=== PATIENT | male | born 1975 | race African-American/Black ===

== ENCOUNTER 2020-01-12 19:34 | Inpatient (IN) | payer BC ==
[~2020-01-12] VITALS: Ht 182.9 cm; Wt 158.8 kg
[2020-01-12 20:14] VITALS: BP 140/82
--- NOTE | 2020-01-12 20:14 | NUR ---
ER Nurse Note: Pt walked in with c/o RT side flank pain s/p gastric sleeve surgery at 0700. Pt stated he was discharged at 1500. Pt stated he has severe sharp lower abd pain to flank pain; unresolved by norco. Pt stated n/v. Pt denies taking oral fluids and food d/t surgery. Pt has three steri-strips on abd, site clean, dry, intact. ERMD at pt side, will continue to monitor
[2020-01-12] MEDS ORDERED: HYDROmorphone 1mg/ml Carpuject IVP ONE ×2 (20:15→21:15)
--- NOTE | 2020-01-12 20:39 | NUR ---
ER Nurse Note: Pt back from CT; all labs sent and awaiting results. IV established by second RN. Fluids infusing, pt stated pain med did not help and stated 10/10 pain. Pt back on social worker health services. Will continue to montior.
--- NOTE | 2020-01-12 20:59 | Diagnostic Imaging Report ---
INDICATION: Abdominal pain TECHNIQUE: Continuous helical transaxial imaging of the abdomen and pelvis was obtained from the lung bases to the pubic symphysis. No intravenous contrast was administered. Coronal 2-D reformats were also obtained. Automatic Exposure Control was utilized. Total Dose length Product (DLP): [address] Dose Index Volume (CTDIvol): 39 mGy Comparison: none FINDINGS: Lungs: Some groundglass opacification noted at the lung bases. There is motion related artifact present. Hiatal hernia and cardiomegaly are noted.. There are small bubbles of air demonstrated within the ventral abdominal wall and subcutaneous fat. This may be from recent surgery. Please correlate clinically. Liver: Grossly unremarkable. Again there is motion artifact. Gallbladder/biliary system: No gallstones are identified. There is no evidence of intrahepatic or extrahepatic biliary ductal dilatation. Spleen: Unremarkable Pancreas: Unremarkable Kidneys/Bladder: No definite stone or hydronephrosis are identified. The urinary bladder is unremarkable.. Adrenal glands: Poorly evaluated. Bowel: There are surgical clips in the area of the stomach. No obvious evidence for bowel obstruction. The appendix is seen and appears normal in caliber. No inflammation seen. Aorta/IVC: Mild calcification of the iliac arteries noted. Peritoneum: There is no free fluid. Bones: Unremarkable IMPRESSION: No acute findings. Limited evaluation. Osteoarthritis of the left hip. Patchy groundglass opacities at the lung bases nonspecific. Cardiomegaly Hiatal hernia Ventral abdominal wall air. Correlate for recent surgery or injections. [facility] has communicated the preliminary results to the Emergency Department. Their findings are largely concordant with this report. Very limited study due to motion Note: Evaluation of solid organs is limited on non contrast imaging. The CT scanner at [facility] is accredited by the [employer] and the scans are performed using dose optimization techniques as appropriate to a performed exam including Automatic Exposure control.
--- NOTE | 2020-01-12 21:03 | Emergency Room Report ---
History of Present Illness General Chief Complaint: Pain Source: Patient Present Illness HPI 44-year-old male presents with right flank pain after bariatric surgery patient reports that he was lying on his back the entire surgery, and afterwards he has been having right lower back pain, aggravated with movement alleviated throughout severity is moderate, intermittent no fevers no chills no dysuria, endorses some generalized abdominal pain after the bariatric surgery patient presents for evaluation. Allergies: Coded Allergies: No Known Allergies (Unverified , 01/12/20) Patient History Past Medical History: see triage record Reviewed Nursing Documentation: PMH: Agreed; PSxH: Agreed Nursing Documentation-PMH Hx Hypertension: Yes Review of Systems All Other Systems: negative except mentioned in HPI Physical Exam Vital Signs Date Time Temp Pulse Resp B/P (MAP) Pulse Ox O2 Delivery O2 Flow Rate FiO2 01/12/20 19:42 99.0 76 27 140/82 (101) 100 Sp02 EP Interpretation: reviewed, normal General Appearance: alert, moderate distress Head: normocephalic, atraumatic Eyes: bilateral eye PERRL, bilateral eye EOMI ENT: uvula midline, moist mucus membranes Neck: supple, thyroid normal, supple/symm/no masses Respiratory: lungs clear, no respiratory distress, no retraction, no accessory muscle use Cardiovascular #1: normal peripheral pulses, regular rate, rhythm, no edema, no gallop, no murmur Gastrointestinal: non tender, soft, no guarding, no rebound, other - Surgical incisions noted clean dry intact Musculoskeletal: tender - Tenderness to palpation right lower back, no midline tenderness no step-offs Neurologic: alert, oriented x3 Psychiatric: mood/affect normal Skin: no rash, warm/dry Medical Decision Making Diagnostic Impression: Primary Impression: Intractable abdominal pain Additional Impressions: Transaminitis Acute postoperative pain of abdomen ER Course 44-year-old male with right flank pain after the operation most likely secondary to positioning and pressure patient with a large body habitus, no infectious etiologies. Patient requiring multiple amounts of pain medication to control his pain We will admit patient for pain control No acute surgical intervention at this time We will admit patient Reeval 9:37pm patient improving with pain control Patient admitted to Dr. Ott Laboratory Tests Test 01/12/20 20:15 White Blood Count 13.9 K/UL (4.8-10.8) H Red Blood Count 4.71 M/UL (4.70-6.10) Hemoglobin 15.0 G/DL (14.2-18.0) Hematocrit 46.6 % (42.0-52.0) Mean Corpuscular Volume 99 FL (80-99) Mean Corpuscular Hemoglobin 31.9 PG (27.0-31.0) H Mean Corpuscular Hemoglobin Concent 32.2 G/DL (32.0-36.0) Red Cell Distribution Width 13.4 % (11.6-14.8) Platelet Count 295 K/UL (150-450) Mean Platelet Volume 6.4 FL (6.5-10.1) L Neutrophils (%) (Auto) 92.8 % (45.0-75.0) H Lymphocytes (%) (Auto) 3.8 % (20.0-45.0) L Monocytes (%) (Auto) 3.1 % (1.0-10.0) Eosinophils (%) (Auto) 0.0 % (0.0-3.0) Basophils (%) (Auto) 0.4 % (0.0-2.0) Prothrombin Time 10.7 SEC (9.30-11.50) Prothrombin Time INR 1.0 (0.9-1.1) Activated Partial Thromboplast Time 26 SEC (23-33) Sodium Level 142 MMOL/L (136-145) Potassium Level 4.2 MMOL/L (3.5-5.1) Chloride Level 99 MMOL/L (98-107) Carbon Dioxide Level 30 MMOL/L (21-32) Anion Gap 13 mmol/L (5-15) Blood Urea Nitrogen 18 mg/dL (7-18) Creatinine 1.3 MG/DL (0.55-1.30) Estimate Glomerular Filtration Rate > 60 mL/min (>60) Glucose Level 126 MG/DL (74-106) H Calcium Level 9.8 MG/DL (8.5-10.1) Total Bilirubin 0.4 MG/DL (0.2-1.0) Aspartate Amino Transferase (AST) 885 U/L (15-37) H Alanine Aminotransferase (ALT) 304 U/L (12-78) H Alkaline Phosphatase 68 U/L (46-116) Total Protein 8.3 G/DL (6.4-8.2) H Albumin 4.3 G/DL (3.4-5.0) Globulin 4.0 g/dL Albumin/Globulin Ratio 1.1 (1.0-2.7) Lipase 207 U/L (73-393) Rhythm Strip Diag. Results Rhythm Strip Time: 21:37 EP Interpretation: yes Rate: 80 Rhythm: NSR, no PVC's, no ectopy CT/MRI/US Diagnostic Results CT/MRI/US Diagnostic Results : Impression Procedure: CT Abdomen Pelvis WO Contrast CT ABDOMEN + PELVIS Without Contrast: Left infrahilar mild infiltrate or atelectasis. Small hiatal hernia. Surgical clips around nondistended stomach. Emphysema in the anterior abdominal wall fat as well as deep to the rectus muscle but superficial to the peritoneum. Streaky changes in the right and left upper anterior abdominal wall fat is noted. Please clinically correlate if patient has had any trauma or injections. Fatty liver. Normal appendix. Negative for hydronephrosis Negative for obstruction or inflammatory change of the bowel. Severe left, moderate right hip arthroplasty. Old fracture deformity and pin is noted in the left femoral head neck region. S-shaped scoliosis of the thoracolumbar spine. Dictated By: Jennifer Juarez M.D. Electronically Signed By: Signed Date/Time CC: Last Vital Signs Date Time Temp Pulse Resp B/P (MAP) Pulse Ox O2 Delivery O2 Flow Rate FiO2 01/12/20 20:46 98.9 01/12/20 20:14 78 27 140/82 100 Disposition: ADMITTED INPATIENT Condition: Stable Caleb Jaramillo MD Jan 12, 2020 21:03
[2020-01-12 21:04] LABS: ANION GAP 13 mmol/L (5-15); BLOOD UREA NITROGEN 18 mg/dL (7-18); CALCIUM 9.8 MG/DL (8.5-10.1); CARBON DIOXIDE 30 MMOL/L (21-32); CHLORIDE 99 MMOL/L (98-107); CREATININE 1.3 MG/DL (0.55-1.30); HEMATOCRIT 46.6 % (42.0-52.0); MEAN CORPUSCULAR VOLUME 99 FL (80-99); PLATELET COUNT 295 K/UL (150-450); POTASSIUM 4.2 MMOL/L (3.5-5.1); RED BLOOD COUNT 4.71 M/UL (4.70-6.10); RED CELL DISTRIBUTION WIDTH 13.4 % (11.6-14.8); SODIUM 142 MMOL/L (136-145); WHITE BLOOD COUNT 13.9 K/UL (4.8-10.8)
[2020-01-12 21:06] LABS: LYMPHOCYTES % (AUTO) 3.8 % (20.0-45.0); NEUTROPHILS % (AUTO) 92.8 % (45.0-75.0)
[2020-01-12 21:07] LABS: BASOPHILS % (AUTO) 0.4 % (0.0-2.0); MONOCYTES % (AUTO) 3.1 % (1.0-10.0)
[2020-01-12 21:09] LABS: ALANINE AMINOTRANSFERASE 304 U/L (12-78); ALBUMIN 4.3 G/DL (3.4-5.0); ALBUMIN/GLOBULIN RATIO 1.1 (1.0-2.7); ALKALINE PHOSPHATASE 68 U/L (46-116); ASPARTATE AMINO TRANSFERASE 885 U/L (15-37); BILIRUBIN,TOTAL 0.4 MG/DL (0.2-1.0)
[2020-01-12] MEDS ORDERED: Ketorolac 30mg Inj IV ONE (21:15)
[2020-01-12 21:44] VITALS: BP 145/84
--- NOTE | 2020-01-12 21:45 | NUR ---
ER Nurse Note: Pt expressed pain, ERMD aware and pain meds given. Pt asleep, VSS, RA, no signs of distress. No n/v currently. at bedside; all safey measures met; will continue to montior.
--- NOTE | 2020-01-12 22:10 | NUR ---
NURSE NOTES: Receive a report from TERESA Wick from ED.
[2020-01-12] MEDS ORDERED: OMEPRAZOLE40 M1 ORAL (22:18)
[2020-01-12] MEDS ORDERED: ZOFRAN ODT8 MG ORAL (22:18)
[2020-01-12] MEDS ORDERED: NORCO 5-325 TA1 EACH ORAL (22:18)
[2020-01-12] MEDS ORDERED: ATENOLOL100 MG ORAL (22:20)
[2020-01-12] MEDS ORDERED: LISINOPRIL40 MG ORAL (22:20)
[2020-01-12 22:25] LABS: APPEARANCE,URINE SLIGHTLY CLOUDY; BILIRUBIN, URINE NEGATIVE (NEGATIVE); GLUCOSE, URINE (UA) NEGATIVE (NEGATIVE); KETONES,URINE 1+ (NEGATIVE); LEUKOCYTE ESTERASE ,URINE NEGATIVE (NEGATIVE); NITRITE,URINE NEGATIVE (NEGATIVE); PH,URINE 5 (4.5-8.0); PROTEIN,URINE 2+ (NEGATIVE); UROBILINOGEN,URINE NORMAL MG/DL (0.0-1.0)
--- NOTE | 2020-01-12 22:26 | NUR ---
ER Nurse Note: Urine collected and sent to lab. Report given to TERESA Nash for continuity of care. Pt stated his pain is getting better; 5/10 pain after pain medication administered. at bedside. Belongings collected.
[2020-01-12 22:27] LABS: COLOR,URINE YELLOW
[2020-01-12 22:45] VITALS: BP 150/78
--- NOTE | 2020-01-12 22:45 | NUR ---
ER Nurse Note: Pt departed from unit
[2020-01-12 22:55] VITALS: BP 164/94
--- NOTE | 2020-01-12 22:55 | NUR ---
NURSE NOTES: Pt admitted from ED via gurney. Awake and alert. D/T pain on right flank, pt needs to a time to move from gurney to bed. Surgical sites from outpatient @ other facility are clear and intact with steri-strips. Left AC H/L is intact without infiltration. Provide unit orientation. Call light within reach. Bed is locked and lowest. Will continue to monitor.
--- NOTE | 2020-01-12 23:10 | NUR ---
NURSE NOTES: Called Dr. Ott for pt's admission and admission orders. Will continue to follow up.
[2020-01-12] MEDS ORDERED: DiphenhydrAMINE 25mg Tab ORAL PRN (23:30)
[2020-01-12] MEDS ORDERED: Nitroglycerin Subl 0.4mg tab SL PRN (23:30)
[2020-01-12] MEDS ORDERED: Miralax 17gm pkt ORAL PRN (23:30)
--- NOTE | 2020-01-12 23:40 | NUR ---
NURSE NOTES: Receive admission orders from Dr. Varela. Order noted and carried out. Called Dr. Ott and Dr. Interiano for pain medication order and waiting for call-back. Will continue to follow up.
[2020-01-13] VITALS: BP 164/94
--- NOTE | 2020-01-13 | NUR ---
NURSE NOTES: Pt fell asleep. is at bed side. Discuss with about possible pain after surgery earlier he had. Explain the situation to get extra order from . Will continue to follow up.
[2020-01-13] MEDS: D5 1/2NS 1,000 ML IV SCH ×2 (01:08→13:25)
--- NOTE | 2020-01-13 01:18 | NUR ---
NURSE NOTES: Left a message to Dr. Ott and Dr. Varela for further order.
--- NOTE | 2020-01-13 02:00 | NUR ---
NURSE NOTES: Left a message to Dr. Varela by [employer] Outside. Will wait for call back.
--- NOTE | 2020-01-13 02:30 | NUR ---
NURSE NOTES: Contact Dr. Farnsworth for further order by CN. Waiting for call back.
--- NOTE | 2020-01-13 02:45 | NUR ---
NURSE NOTES: Receive a call from Dr. Farnsworth and update the situation. Receive an order of Dilaudid 1mg IVS once. Read back order. Order noted and carried out.
[2020-01-13] MEDS ORDERED: HYDROmorphone 1mg/ml Carpuject IVP SCH (03:00)
[2020-01-13 04:00] VITALS: BP 153/83
--- NOTE | 2020-01-13 04:30 | NUR ---
NURSE NOTES: Pt had pain medication but pain did not relieve. Update the order so far. Left a message to Dr. Varela. Will continue to follow up.
--- NOTE | 2020-01-13 05:00 | NUR ---
NURSE NOTES: Since no gas passing after surgery and no bowel sound noted, encourage to ambulate. Provide FWW to support. Pt got out of the bed. Ambulated in the room but not much d/t right side pain. Will continue to follow up for MD's order.
[2020-01-13 06:01] LABS: HEMATOCRIT 42.3 % (42.0-52.0); HEMOGLOBIN 14.5 G/DL (14.2-18.0); MEAN CORPUSCULAR VOLUME 95 FL (80-99); PLATELET COUNT 269 K/UL (150-450); RED BLOOD COUNT 4.46 M/UL (4.70-6.10); RED CELL DISTRIBUTION WIDTH 12.7 % (11.6-14.8); WHITE BLOOD COUNT 12.3 K/UL (4.8-10.8)
[2020-01-13 06:21] LABS: ALANINE AMINOTRANSFERASE 347 U/L (12-78); ALKALINE PHOSPHATASE 61 U/L (46-116); AMYLASE 50 U/L (25-115); ANION GAP 8 mmol/L (5-15); BILIRUBIN,TOTAL 0.4 MG/DL (0.2-1.0); BLOOD UREA NITROGEN 17 mg/dL (7-18); CALCIUM 9.3 MG/DL (8.5-10.1); CARBON DIOXIDE 32 MMOL/L (21-32); CHLORIDE 101 MMOL/L (98-107); CREATININE 1.1 MG/DL (0.55-1.30); POTASSIUM 3.9 MMOL/L (3.5-5.1); SODIUM 141 MMOL/L (136-145)
--- NOTE | 2020-01-13 06:35 | NUR ---
NURSE NOTES: Notify Dr. Varela to get pain medication. Receive orders and read back. Order noted and carried out. Pt and made aware. Waiting for verifying medication.
[2020-01-13] MEDS: Pantoprazole Inj IVP SCH (06:39)
[2020-01-13] MEDS ORDERED: Ketorolac 30mg Inj IM PRN (06:45)
[2020-01-13] MEDS ORDERED: Ketorolac 30mg Inj IV PRN (07:00)
--- NOTE | 2020-01-13 07:10 | NUR ---
HAND-OFF: Report given to TERESA Addison. Round is done. Pt is asleep.
[2020-01-13 08:00] VITALS: BP 132/78
--- NOTE | 2020-01-13 08:05 | NUR ---
NURSE NOTES: received report from TERESA Ta. patient in bed, A&Ox4, verbally responsive. no respiratory distress noted. pain on ABD. IV on RAC 20 running d51/2NS@75/hr. bed in the lowest position and locked. call light within reach. NPO except ice chips and meds. surgical site dressing on abd intact. clean and dry. no drainage or bleeding noted. bed in the lowest position and locked. call light within reach. will continue to provide plan of care.
[2020-01-13] MEDS: Lisinopril 20mg tab ORAL SCH (08:42)
[2020-01-13] MEDS: Heparin 5000 units/ml inj SUBQ SCH ×2 (08:44→22:03)
[2020-01-13 09:16] LABS: ASPARTATE AMINO TRANSFERASE 1136 U/L (15-37)
[2020-01-13] MEDS ORDERED: Varibar Thin Liquid powder 148gm MC PRN (10:00)
[2020-01-13] MEDS ORDERED: Barium EZ HD MC PRN (10:00)
[2020-01-13] MEDS ORDERED: Barium EZ Gas II granules MC PRN (10:00)
--- NOTE | 2020-01-13 11:48 | NUR ---
NURSE NOTES: Spoke to Virgilio Paredes [employer] regarding patient and new order received. Order read back and carried out.
[2020-01-13 12:00] VITALS: BP 153/76
--- NOTE | 2020-01-13 12:39 | GI Initial Consult Note ---
History of Present Illness General Date patient seen: Jan 13, 2020 Time patient seen: 12:25 Reason for Hospitalization: Pain Referring physician: LAILA CARLOS Reason for Consultation: TRANSAMINITIS Present Illness HPI 44-year-old male presents with right flank pain after bariatric surgery patient reports that he was lying on his back the entire surgery, and afterwards he has been having right lower back pain, aggravated with movement alleviated throughout severity is moderate, intermittent no fevers no chills no dysuria, endorses some generalized abdominal pain after the bariatric surgery patient presents for evaluation. GI consulted for abdominal pain, transaminitis. Pt seen, awake A&Ox4 NAD with no active s/sx of N/V. At the time of evaluation, the patient has right flank pain with minimal relief from pain medication. Patient recently had bariatric surgery, but denies any abdominal pain or bloating. The pain is initial and the patient never had this type of pain before. Patient was pending a UGI series, but unable to be performed due to the patients weight. CT was performed , noted for fatty liver but mainly unremarkable. Laboratory review noted LFT elevation. Home Meds Reported Medications Atenolol* (TENORMIN*) 100 Mg Tablet, 100 MG ORAL DAILY for bp, TAB 01/12/20 Lisinopril* (LISINOPRIL*) 40 Mg Tablet, 40 MG ORAL DAILY for BP, TAB 01/12/20 Omeprazole (OMEPRAZOLE) 40 Mg Capsule.dr, 40 MG ORAL DAILY for gerd, CAP 01/12/20 Hydrocodone Bit/Acetaminophen 5-325* (NORCO 5-325*) 1 Each Tablet, 1 TAB ORAL Q6H PRN for For Pain, #12 TAB 0 Refills 01/12/20 Ondansetron Odt* (ZOFRAN ODT*) 8 Mg Tab.rapdis, 8 MG ORAL Q6H PRN for Nausea & Vomiting, #30 TAB 01/12/20 Med list reviewed/reconciled: Yes Allergies: Coded Allergies: No Known Allergies (Unverified , 01/12/20) Patient History History Provided By: Patient, Medical Record PMH Narrative Past Medical History: see triage record Reviewed Nursing Documentation: PMH: Agreed; PSxH: Agreed Social History: Denies: smoking, alcohol use, drug use, other Review of Systems All Other Systems: negative except mentioned in HPI Physical Exam Vital Signs Date Time Temp Pulse Resp B/P (MAP) Pulse Ox O2 Delivery O2 Flow Rate FiO2 01/12/20 19:42 99.0 76 27 140/82 (101) 100 01/12/20 22:45 Nasal Cannula 1.0 Sp02 EP Interpretation: reviewed, normal Labs Laboratory Tests Test 01/12/20 20:15 01/12/20 22:05 01/13/20 05:15 White Blood Count 13.9 K/UL (4.8-10.8) H 12.3 K/UL (4.8-10.8) H Red Blood Count 4.71 M/UL (4.70-6.10) 4.46 M/UL (4.70-6.10) L Hemoglobin 15.0 G/DL (14.2-18.0) 14.5 G/DL (14.2-18.0) Hematocrit 46.6 % (42.0-52.0) 42.3 % (42.0-52.0) Mean Corpuscular Volume 99 FL (80-99) 95 FL (80-99) Mean Corpuscular Hemoglobin 31.9 PG (27.0-31.0) H 32.5 PG (27.0-31.0) H Mean Corpuscular Hemoglobin Concent 32.2 G/DL (32.0-36.0) 34.2 G/DL (32.0-36.0) Red Cell Distribution Width 13.4 % (11.6-14.8) 12.7 % (11.6-14.8) Platelet Count 295 K/UL (150-450) 269 K/UL (150-450) Mean Platelet Volume 6.4 FL (6.5-10.1) L 5.4 FL (6.5-10.1) L Neutrophils (%) (Auto) 92.8 % (45.0-75.0) H % (45.0-75.0) Lymphocytes (%) (Auto) 3.8 % (20.0-45.0) L % (20.0-45.0) Monocytes (%) (Auto) 3.1 % (1.0-10.0) % (1.0-10.0) Eosinophils (%) (Auto) 0.0 % (0.0-3.0) % (0.0-3.0) Basophils (%) (Auto) 0.4 % (0.0-2.0) % (0.0-2.0) Prothrombin Time 10.7 SEC (9.30-11.50) Prothromb Time International Ratio 1.0 (0.9-1.1) Activated Partial Thromboplast Time 26 SEC (23-33) 28 SEC (23-33) Sodium Level 142 MMOL/L (136-145) 141 MMOL/L (136-145) Potassium Level 4.2 MMOL/L (3.5-5.1) 3.9 MMOL/L (3.5-5.1) Chloride Level 99 MMOL/L (98-107) 101 MMOL/L (98-107) Carbon Dioxide Level 30 MMOL/L (21-32) 32 MMOL/L (21-32) Anion Gap 13 mmol/L (5-15) 8 mmol/L (5-15) Blood Urea Nitrogen 18 mg/dL (7-18) 17 mg/dL (7-18) Creatinine 1.3 MG/DL (0.55-1.30) 1.1 MG/DL (0.55-1.30) Estimat Glomerular Filtration Rate > 60 mL/min (>60) > 60 mL/min (>60) Glucose Level 126 MG/DL (74-106) H 115 MG/DL (74-106) H Calcium Level 9.8 MG/DL (8.5-10.1) 9.3 MG/DL (8.5-10.1) Total Bilirubin 0.4 MG/DL (0.2-1.0) 0.4 MG/DL (0.2-1.0) Aspartate Amino Transf (AST/SGOT) 885 U/L (15-37) H 1136 U/L (15-37) H Alanine Aminotransferase (ALT/SGPT) 304 U/L (12-78) H 347 U/L (12-78) H Alkaline Phosphatase 68 U/L (46-116) 61 U/L (46-116) Total Protein 8.3 G/DL (6.4-8.2) H 8.0 G/DL (6.4-8.2) Albumin 4.3 G/DL (3.4-5.0) 4.0 G/DL (3.4-5.0) Globulin 4.0 g/dL 4.0 g/dL Albumin/Globulin Ratio 1.1 (1.0-2.7) 1.0 (1.0-2.7) Lipase 207 U/L (73-393) 126 U/L (73-393) Urine Color Yellow Urine Appearance Slightly cloudy Urine pH 5 (4.5-8.0) Urine Specific [place] 1.020 (1.005-1.035) Urine Protein 2+ (NEGATIVE) H Urine Glucose (UA) Negative (NEGATIVE) Urine Ketones 1+ (NEGATIVE) H Urine Blood 5+ (NEGATIVE) H Urine Nitrite Negative (NEGATIVE) Urine Bilirubin Negative (NEGATIVE) Urine Urobilinogen Normal MG/DL (0.0-1.0) Urine Leukocyte Esterase Negative (NEGATIVE) Urine RBC 0-2 /HPF (0 - 0) H Urine WBC 2-4 /HPF (0 - 0) Urine Squamous Epithelial Cells Occasional /LPF Urine Bacteria Few /HPF (NONE) Amylase Level 50 U/L (25-115) General Appearance: well appearing, no apparent distress, alert Head: normocephalic EENT: PERRL/EOMI, normal ENT inspection Neck: supple Respiratory: normal breath sounds, no respiratory distress Cardiovascular: normal rate Gastrointestinal: normal inspection, non tender, soft, normal bowel sounds, non -distended Rectal: deferred Genitourinary: deferred Musculoskeletal: normal inspection, back normal Neurologic: alert, oriented x3, responsive, normal inspection Psychiatric: normal inspection, judgement/insight normal, memory normal Skin: normal inspection, normal color, no rash, warm/dry, palpation normal, well hydrated Lymphatic: normal inspection, no adenopathy Current Medications Current Medications Medications (Trade) Dose Ordered Sig/Chris Route PRN Reason Start Time Stop Time Status Last Admin Dose Admin Acetaminophen (Tylenol) 650 mg Q4H PRN ORAL fever 01/12/20 23:30 02/11/20 23:29 Atenolol (Tenormin) 100 mg DAILY ORAL 01/13/20 09:00 02/12/20 08:59 01/13/20 08:42 Barium Sulfate (Barium EZ Gas II) 1 ea NOW PRN Radiology Procedure 01/13/20 10:00 Barium Sulfate (Barium EZ HD) 1 ea NOW PRN Radiology Procedure 01/13/20 10:00 Barium Sulfate (Varibar Thin Liquid powder) 148 gm NOW PRN Radiology Procedure 01/13/20 10:00 Dextrose (Dextrose 50%) 25 ml Q30M PRN IV Hypoglycemia 01/12/20 23:30 02/11/20 23:29 Dextrose (Dextrose 50%) 50 ml Q30M PRN IV Hypoglycemia 01/12/20 23:30 02/11/20 23:29 Dextrose/Sodium Chloride 1,000 ml @ 75 mls/hr [id number] IV 01/12/20 23:30 02/11/20 23:29 01/13/20 01:08 Diphenhydramine HCl (Benadryl) 25 mg Q6H PRN ORAL Itching/Pruritis 01/12/20 23:30 02/11/20 23:29 Heparin Sodium (Porcine) (Heparin 5000 units/ml) 5,000 units EVERY 12 HOURS SUBQ 01/13/20 09:00 02/12/20 08:59 01/13/20 08:44 Hydromorphone HCl (Dilaudid) 3 mg Q2H PRN IVP Severe Pain (Pain Scale 7-10) 01/13/20 09:30 01/20/20 09:29 01/13/20 11:47 Ketorolac Tromethamine (Toradol 30mg) 30 mg Q6H PRN IV Severe Breakthru Pain (>7) 01/13/20 07:00 01/18/20 06:59 01/13/20 07:00 Lisinopril (PriniviL) 40 mg DAILY ORAL 01/13/20 09:00 02/12/20 08:59 01/13/20 08:42 Nitroglycerin (Ntg) 0.4 mg Q5M X 3 DOSES PRN SL Prn Chest Pain 01/12/20 23:30 02/11/20 23:29 Ondansetron HCl (Zofran) 4 mg Q6H PRN IVP Nausea & Vomiting 01/12/20 23:30 02/11/20 23:29 Pantoprazole (Protonix) 40 mg DAILY@0630 IVP 01/13/20 06:30 02/12/20 06:29 01/13/20 06:39 Polyethylene Glycol (Miralax) 17 gm HSPRN PRN ORAL Constipation 01/12/20 23:30 02/11/20 23:29 Temazepam (Restoril) 15 mg HSPRN PRN ORAL Insomnia 01/12/20 23:30 01/19/20 23:29 GI: Plan Problems: (1) Transaminitis (2) Acute postoperative pain of abdomen (3) Intractable abdominal pain Plan Abdominal CT reviewed >> No acute findings. Fatty liver. Elevated LFTs most likely due to shock liver less likely drug induced hepatitis will obtain abdominal US r/o biliary obstruction hepatitis panel maintain NPO + IVF repeat liver function tests for tomorrow pain management The patient was seen and examined at bedside and all new and available data was reviewed in the patients chart. I agree with the above findings, impression and plan. (Patient seen earlier today. Signature stamp does not reflect patient encounter time.). - MD Lena MillerCopper Springs HospitalJeanne INSTRUCTIONAL COACH Jan 13, 2020 12:39
--- NOTE | 2020-01-13 13:21 | Consultation ---
History of Present Illness General Chief Complaint: Pain Referring physician: LAILA CARLOS Reason for Consultation: TRANSAMINITIS Present Illness Allergies: Coded Allergies: No Known Allergies (Unverified , 01/12/20) Medication History Scheduled Atenolol* (Tenormin*), 100 MG ORAL DAILY, (Reported) Lisinopril* (Lisinopril*), 40 MG ORAL DAILY, (Reported) Omeprazole (Omeprazole), 40 MG ORAL DAILY, (Reported) Scheduled PRN Hydrocodone Bit/Acetaminophen 5-325* ([place] 5-325*), 1 TAB ORAL Q6H PRN for For Pain, (Reported) Ondansetron Odt* (Zofran Odt*), 8 MG ORAL Q6H PRN for Nausea & Vomiting, ( Reported) Patient History Healthcare decision maker Resuscitation status Full Code Advanced Directive on File Physical Exam Last 24 Hour Vital Signs Date Time Temp Pulse Resp B/P (MAP) Pulse Ox O2 Delivery O2 Flow Rate FiO2 01/13/20 09:00 Nasal Cannula 2.0 01/13/20 08:42 132/78 01/13/20 08:42 77 132/78 01/13/20 08:00 99.1 77 20 132/78 (96) 94 01/13/20 04:00 99.0 75 20 153/83 (106) 96 01/13/20 00:00 99.3 70 20 164/94 (117) 94 01/12/20 23:30 Nasal Cannula 2.0 01/12/20 22:55 99.3 70 20 164/94 (117) 92 01/12/20 22:45 98.5 80 18 150/78 100 Nasal Cannula 1.0 01/12/20 22:45 98.5 80 18 150/78 100 Nasal Cannula 1.0 01/12/20 22:30 98.5 01/12/20 22:30 98.5 01/12/20 21:44 98.5 78 18 145/84 100 01/12/20 20:46 98.9 01/12/20 20:14 99.0 78 27 140/82 100 01/12/20 19:42 99.0 76 27 140/82 (101) 100 Intake and Output 01/12/20 01/13/20 19:00 07:00 Intake Total 2000 ml Balance 2000 ml Intake IV Total 2000 ml # Voids 1 Laboratory Tests Test 01/12/20 20:15 01/12/20 22:05 01/13/20 05:15 White Blood Count 13.9 K/UL (4.8-10.8) H 12.3 K/UL (4.8-10.8) H Red Blood Count 4.71 M/UL (4.70-6.10) 4.46 M/UL (4.70-6.10) L Hemoglobin 15.0 G/DL (14.2-18.0) 14.5 G/DL (14.2-18.0) Hematocrit 46.6 % (42.0-52.0) 42.3 % (42.0-52.0) Mean Corpuscular Volume 99 FL (80-99) 95 FL (80-99) Mean Corpuscular Hemoglobin 31.9 PG (27.0-31.0) H 32.5 PG (27.0-31.0) H Mean Corpuscular Hemoglobin Concent 32.2 G/DL (32.0-36.0) 34.2 G/DL (32.0-36.0) Red Cell Distribution Width 13.4 % (11.6-14.8) 12.7 % (11.6-14.8) Platelet Count 295 K/UL (150-450) 269 K/UL (150-450) Mean Platelet Volume 6.4 FL (6.5-10.1) L 5.4 FL (6.5-10.1) L Neutrophils (%) (Auto) 92.8 % (45.0-75.0) H % (45.0-75.0) Lymphocytes (%) (Auto) 3.8 % (20.0-45.0) L % (20.0-45.0) Monocytes (%) (Auto) 3.1 % (1.0-10.0) % (1.0-10.0) Eosinophils (%) (Auto) 0.0 % (0.0-3.0) % (0.0-3.0) Basophils (%) (Auto) 0.4 % (0.0-2.0) % (0.0-2.0) Prothrombin Time 10.7 SEC (9.30-11.50) Prothromb Time International Ratio 1.0 (0.9-1.1) Activated Partial Thromboplast Time 26 SEC (23-33) 28 SEC (23-33) Sodium Level 142 MMOL/L (136-145) 141 MMOL/L (136-145) Potassium Level 4.2 MMOL/L (3.5-5.1) 3.9 MMOL/L (3.5-5.1) Chloride Level 99 MMOL/L (98-107) 101 MMOL/L (98-107) Carbon Dioxide Level 30 MMOL/L (21-32) 32 MMOL/L (21-32) Anion Gap 13 mmol/L (5-15) 8 mmol/L (5-15) Blood Urea Nitrogen 18 mg/dL (7-18) 17 mg/dL (7-18) Creatinine 1.3 MG/DL (0.55-1.30) 1.1 MG/DL (0.55-1.30) Estimat Glomerular Filtration Rate > 60 mL/min (>60) > 60 mL/min (>60) Glucose Level 126 MG/DL (74-106) H 115 MG/DL (74-106) H Calcium Level 9.8 MG/DL (8.5-10.1) 9.3 MG/DL (8.5-10.1) Total Bilirubin 0.4 MG/DL (0.2-1.0) 0.4 MG/DL (0.2-1.0) Aspartate Amino Transf (AST/SGOT) 885 U/L (15-37) H 1136 U/L (15-37) H Alanine Aminotransferase (ALT/SGPT) 304 U/L (12-78) H 347 U/L (12-78) H Alkaline Phosphatase 68 U/L (46-116) 61 U/L (46-116) Total Protein 8.3 G/DL (6.4-8.2) H 8.0 G/DL (6.4-8.2) Albumin 4.3 G/DL (3.4-5.0) 4.0 G/DL (3.4-5.0) Globulin 4.0 g/dL 4.0 g/dL Albumin/Globulin Ratio 1.1 (1.0-2.7) 1.0 (1.0-2.7) Lipase 207 U/L (73-393) 126 U/L (73-393) Urine Color Yellow Urine Appearance Slightly cloudy Urine pH 5 (4.5-8.0) Urine Specific [place] 1.020 (1.005-1.035) Urine Protein 2+ (NEGATIVE) H Urine Glucose (UA) Negative (NEGATIVE) Urine Ketones 1+ (NEGATIVE) H Urine Blood 5+ (NEGATIVE) H Urine Nitrite Negative (NEGATIVE) Urine Bilirubin Negative (NEGATIVE) Urine Urobilinogen Normal MG/DL (0.0-1.0) Urine Leukocyte Esterase Negative (NEGATIVE) Urine RBC 0-2 /HPF (0 - 0) H Urine WBC 2-4 /HPF (0 - 0) Urine Squamous Epithelial Cells Occasional /LPF Urine Bacteria Few /HPF (NONE) Amylase Level 50 U/L (25-115) Height (Feet): 6 Height (Inches): 0.00 Weight (Pounds): 394 Medications Current Medications Medications (Trade) Dose Ordered Sig/Chris Route PRN Reason Start Time Stop Time Status Last Admin Dose Admin Acetaminophen (Tylenol) 650 mg Q4H PRN ORAL fever 01/12/20 23:30 02/11/20 23:29 Atenolol (Tenormin) 100 mg DAILY ORAL 01/13/20 09:00 02/12/20 08:59 01/13/20 08:42 Barium Sulfate (Barium EZ Gas II) 1 ea NOW PRN Radiology Procedure 01/13/20 10:00 Barium Sulfate (Barium EZ HD) 1 ea NOW PRN Radiology Procedure 01/13/20 10:00 Barium Sulfate (Varibar Thin Liquid powder) 148 gm NOW PRN Radiology Procedure 01/13/20 10:00 Dextrose (Dextrose 50%) 25 ml Q30M PRN IV Hypoglycemia 01/12/20 23:30 02/11/20 23:29 Dextrose (Dextrose 50%) 50 ml Q30M PRN IV Hypoglycemia 01/12/20 23:30 02/11/20 23:29 Dextrose/Sodium Chloride 1,000 ml @ 75 mls/hr [id number] IV 01/12/20 23:30 02/11/20 23:29 01/13/20 01:08 Diphenhydramine HCl (Benadryl) 25 mg Q6H PRN ORAL Itching/Pruritis 01/12/20 23:30 02/11/20 23:29 Heparin Sodium (Porcine) (Heparin 5000 units/ml) 5,000 units EVERY 12 HOURS SUBQ 01/13/20 09:00 02/12/20 08:59 01/13/20 08:44 Hydromorphone HCl (Dilaudid) 3 mg Q2H PRN IVP Severe Pain (Pain Scale 7-10) 01/13/20 09:30 01/20/20 09:29 01/13/20 11:47 Ketorolac Tromethamine (Toradol 30mg) 30 mg Q6H PRN IV Severe Breakthru Pain (>7) 01/13/20 07:00 01/18/20 06:59 01/13/20 07:00 Lisinopril (PriniviL) 40 mg DAILY ORAL 01/13/20 09:00 02/12/20 08:59 01/13/20 08:42 Nitroglycerin (Ntg) 0.4 mg Q5M X 3 DOSES PRN SL Prn Chest Pain 01/12/20 23:30 02/11/20 23:29 Ondansetron HCl (Zofran) 4 mg Q6H PRN IVP Nausea & Vomiting 01/12/20 23:30 02/11/20 23:29 Pantoprazole (Protonix) 40 mg DAILY@0630 IVP 01/13/20 06:30 02/12/20 06:29 01/13/20 06:39 Polyethylene Glycol (Miralax) 17 gm HSPRN PRN ORAL Constipation 01/12/20 23:30 02/11/20 23:29 Temazepam (Restoril) 15 mg HSPRN PRN ORAL Insomnia 01/12/20 23:30 01/19/20 23:29 Daja Varela MD Jan 13, 2020 13:21
[2020-01-13] MEDS ORDERED: Gastrograffin 30ml ORAL PRN (14:30)
[2020-01-13] MEDS ORDERED: Omnipaque-300 100ml vial INJ PRN (14:30)
[2020-01-13] MEDS ORDERED: D5 1/2NS 1000ml IV ONE (14:31)
--- NOTE | 2020-01-13 14:47 | Diagnostic Imaging Report ---
Indication: Abdominal pain. Abnormal LFTs Technique: Grayscale and duplex Doppler imaging of the abdomen performed. Comparison: None Findings: Study is significantly limited by body habitus. The liver is echogenic consistent with fatty infiltration. Portal vein is patent by Doppler. Monophasic hepatopedal flow noted. There is no biliary ductal dilatation seen within the liver. The CBD is not optimally seen but is about 5 to 6 mm in diameter. The pancreas and aorta are not well seen. Kidneys are partially obscured. There is no obvious hydronephrosis. There is no obvious ascites. Spleen is normal in size.. IMPRESSION: Fatty liver. Limited evaluation due to large body habitus
--- NOTE | 2020-01-13 14:58 | Consultation ---
History of Present Illness General Date patient seen: Jan 13, 2020 Reason for Hospitalization: Pain Present Illness HPI This is a 44-year-old male postop day #1 status post laparoscopic gastric sleeve surgery done at outside surgical center by Dr. Luis Manuel Nolan who postoperatively began to develop worsening abdominal pain while at home and came to emergency department at [facility] for evaluation. Noted to have leukocytosis, elevated LFTs, intractable abdominal pain. Admitted for further care and management. Surgery called to evaluate and assist with care. Patient seen, patient evaluated, chart reviewed no nausea vomiting fever chills. CT reviewed Allergies: Coded Allergies: No Known Allergies (Unverified , 01/12/20) Medication History Scheduled Atenolol* (Tenormin*), 100 MG ORAL DAILY, (Reported) Lisinopril* (Lisinopril*), 40 MG ORAL DAILY, (Reported) Omeprazole (Omeprazole), 40 MG ORAL DAILY, (Reported) Scheduled PRN Hydrocodone Bit/Acetaminophen 5-325* ([place] 5-325*), 1 TAB ORAL Q6H PRN for For Pain, (Reported) Ondansetron Odt* (Zofran Odt*), 8 MG ORAL Q6H PRN for Nausea & Vomiting, ( Reported) Patient History History Provided By: Patient, PMD Healthcare decision maker Resuscitation status Full Code Advanced Directive on File Past Medical/Surgical History Past Medical/Surgical History: (1) Transaminitis (2) Acute postoperative pain of abdomen (3) Intractable abdominal pain Review of Systems Review of Symptoms General ROS: no weight loss or fever Psychological ROS: no depression or mood changes, no memory loss Ophthalmic ROS: no visual changes or eye irritation ENT ROS: no nasal congestion, hearing loss, dizziness Allergy and Immunology ROS: no allergic symptoms or urticaria Hematological and Lymphatic ROS: no swollen glands, unusual bleeding or bruising Endocrine ROS: no polyuria, polydipsia, weight changes, temperature intolerance Respiratory ROS: no cough, shortness of breath, or wheezing Cardiovascular ROS: no chest pain or dyspnea on exertion Gastrointestinal ROS: abdominal pain, bright red blood in stool. Musculoskeletal ROS: no myalgias or arthralgias Neurological ROS: no TIA or stroke symptoms Dermatological ROS: no new or changing skin lesions, rashes or pruritis Physical Exam Physical Exam General appearance: alert, cooperative, no distress, appears stated age Head: Normocephalic, without obvious abnormality, atraumatic Eyes: conjunctivae/corneas clear. PERRL, EOM's intact. Fundi benign Throat: Lips, mucosa, and tongue normal. Teeth and gums normal Neck: supple, symmetrical, trachea midline, no adenopathy, thyroid: not enlarged, symmetric, no tenderness/mass/nodules, no carotid bruit and no JVD Lungs: clear to auscultation bilaterally Heart: regular rate and rhythm, S1, S2 normal, no murmur, click, rub or gallop Abdomen: soft, mild general-tender incisions c/d/i . Bowel sounds normal. No masses, no organomegaly Extremities: extremities normal, atraumatic, no cyanosis or edema Pulses: 2+ and symmetric Skin: Skin color, texture, turgor normal. No rashes or lesions Neurologic: Grossly normal Last 24 Hour Vital Signs Date Time Temp Pulse Resp B/P (MAP) Pulse Ox O2 Delivery O2 Flow Rate FiO2 01/13/20 09:00 Nasal Cannula 2.0 01/13/20 08:42 132/78 01/13/20 08:42 77 132/78 01/13/20 08:00 99.1 77 20 132/78 (96) 94 01/13/20 04:00 99.0 75 20 153/83 (106) 96 01/13/20 00:00 99.3 70 20 164/94 (117) 94 01/12/20 23:30 Nasal Cannula 2.0 01/12/20 22:55 99.3 70 20 164/94 (117) 92 01/12/20 22:45 98.5 80 18 150/78 100 Nasal Cannula 1.0 01/12/20 22:45 98.5 80 18 150/78 100 Nasal Cannula 1.0 01/12/20 22:30 98.5 01/12/20 22:30 98.5 01/12/20 21:44 98.5 78 18 145/84 100 01/12/20 20:46 98.9 01/12/20 20:14 99.0 78 27 140/82 100 01/12/20 19:42 99.0 76 27 140/82 (101) 100 Intake and Output 01/12/20 01/13/20 19:00 07:00 Intake Total 2000 ml Balance 2000 ml Intake IV Total 2000 ml # Voids 1 Laboratory Tests Test 01/12/20 20:15 01/12/20 22:05 01/13/20 05:15 White Blood Count 13.9 K/UL (4.8-10.8) H 12.3 K/UL (4.8-10.8) H Red Blood Count 4.71 M/UL (4.70-6.10) 4.46 M/UL (4.70-6.10) L Hemoglobin 15.0 G/DL (14.2-18.0) 14.5 G/DL (14.2-18.0) Hematocrit 46.6 % (42.0-52.0) 42.3 % (42.0-52.0) Mean Corpuscular Volume 99 FL (80-99) 95 FL (80-99) Mean Corpuscular Hemoglobin 31.9 PG (27.0-31.0) H 32.5 PG (27.0-31.0) H Mean Corpuscular Hemoglobin Concent 32.2 G/DL (32.0-36.0) 34.2 G/DL (32.0-36.0) Red Cell Distribution Width 13.4 % (11.6-14.8) 12.7 % (11.6-14.8) Platelet Count 295 K/UL (150-450) 269 K/UL (150-450) Mean Platelet Volume 6.4 FL (6.5-10.1) L 5.4 FL (6.5-10.1) L Neutrophils (%) (Auto) 92.8 % (45.0-75.0) H % (45.0-75.0) Lymphocytes (%) (Auto) 3.8 % (20.0-45.0) L % (20.0-45.0) Monocytes (%) (Auto) 3.1 % (1.0-10.0) % (1.0-10.0) Eosinophils (%) (Auto) 0.0 % (0.0-3.0) % (0.0-3.0) Basophils (%) (Auto) 0.4 % (0.0-2.0) % (0.0-2.0) Prothrombin Time 10.7 SEC (9.30-11.50) Prothromb Time International Ratio 1.0 (0.9-1.1) Activated Partial Thromboplast Time 26 SEC (23-33) 28 SEC (23-33) Sodium Level 142 MMOL/L (136-145) 141 MMOL/L (136-145) Potassium Level 4.2 MMOL/L (3.5-5.1) 3.9 MMOL/L (3.5-5.1) Chloride Level 99 MMOL/L (98-107) 101 MMOL/L (98-107) Carbon Dioxide Level 30 MMOL/L (21-32) 32 MMOL/L (21-32) Anion Gap 13 mmol/L (5-15) 8 mmol/L (5-15) Blood Urea Nitrogen 18 mg/dL (7-18) 17 mg/dL (7-18) Creatinine 1.3 MG/DL (0.55-1.30) 1.1 MG/DL (0.55-1.30) Estimat Glomerular Filtration Rate > 60 mL/min (>60) > 60 mL/min (>60) Glucose Level 126 MG/DL (74-106) H 115 MG/DL (74-106) H Calcium Level 9.8 MG/DL (8.5-10.1) 9.3 MG/DL (8.5-10.1) Total Bilirubin 0.4 MG/DL (0.2-1.0) 0.4 MG/DL (0.2-1.0) Aspartate Amino Transf (AST/SGOT) 885 U/L (15-37) H 1136 U/L (15-37) H Alanine Aminotransferase (ALT/SGPT) 304 U/L (12-78) H 347 U/L (12-78) H Alkaline Phosphatase 68 U/L (46-116) 61 U/L (46-116) Total Protein 8.3 G/DL (6.4-8.2) H 8.0 G/DL (6.4-8.2) Albumin 4.3 G/DL (3.4-5.0) 4.0 G/DL (3.4-5.0) Globulin 4.0 g/dL 4.0 g/dL Albumin/Globulin Ratio 1.1 (1.0-2.7) 1.0 (1.0-2.7) Lipase 207 U/L (73-393) 126 U/L (73-393) Urine Color Yellow Urine Appearance Slightly cloudy Urine pH 5 (4.5-8.0) Urine Specific [place] 1.020 (1.005-1.035) Urine Protein 2+ (NEGATIVE) H Urine Glucose (UA) Negative (NEGATIVE) Urine Ketones 1+ (NEGATIVE) H Urine Blood 5+ (NEGATIVE) H Urine Nitrite Negative (NEGATIVE) Urine Bilirubin Negative (NEGATIVE) Urine Urobilinogen Normal MG/DL (0.0-1.0) Urine Leukocyte Esterase Negative (NEGATIVE) Urine RBC 0-2 /HPF (0 - 0) H Urine WBC 2-4 /HPF (0 - 0) Urine Squamous Epithelial Cells Occasional /LPF Urine Bacteria Few /HPF (NONE) Amylase Level 50 U/L (25-115) Height (Feet): 6 Height (Inches): 0.00 Weight (Pounds): 394 Medications Current Medications Medications (Trade) Dose Ordered Sig/Chris Route PRN Reason Start Time Stop Time Status Last Admin Dose Admin Acetaminophen (Tylenol) 650 mg Q4H PRN ORAL fever 01/12/20 23:30 02/11/20 23:29 Atenolol (Tenormin) 100 mg DAILY ORAL 01/13/20 09:00 02/12/20 08:59 01/13/20 08:42 Barium Sulfate (Barium EZ Gas II) 1 ea NOW PRN Radiology Procedure 01/13/20 10:00 Barium Sulfate (Barium EZ HD) 1 ea NOW PRN Radiology Procedure 01/13/20 10:00 Barium Sulfate (Readi-Cat 2) 450 ml NOW PRN ORAL Radiology Procedure 01/13/20 14:30 01/15/20 14:17 Barium Sulfate (Varibar Thin Liquid powder) 148 gm NOW PRN Radiology Procedure 01/13/20 10:00 Dextrose (Dextrose 50%) 25 ml Q30M PRN IV Hypoglycemia 01/12/20 23:30 02/11/20 23:29 Dextrose (Dextrose 50%) 50 ml Q30M PRN IV Hypoglycemia 01/12/20 23:30 02/11/20 23:29 Dextrose/Sodium Chloride 1,000 ml @ 75 mls/hr [id number] IV 01/12/20 23:30 02/11/20 23:29 01/13/20 13:25 Diatrizoate Meglum/ Diatrizoate Sod (Gastrografin) 30 ml NOW PRN ORAL Radiology Procedure 01/13/20 14:30 01/15/20 14:17 Diphenhydramine HCl (Benadryl) 25 mg Q6H PRN ORAL Itching/Pruritis 01/12/20 23:30 02/11/20 23:29 Heparin Sodium (Porcine) (Heparin 5000 units/ml) 5,000 units EVERY 12 HOURS SUBQ 01/13/20 09:00 02/12/20 08:59 01/13/20 08:44 Hydromorphone HCl (Dilaudid) 3 mg Q2H PRN IVP Severe Pain (Pain Scale 7-10) 01/13/20 09:30 01/20/20 09:29 01/13/20 11:47 Iohexol (OMNIPAQUE-300 100ml) 100 ml NOW PRN INJ Radiology Procedure 01/13/20 14:30 01/15/20 14:17 Ketorolac Tromethamine (Toradol 30mg) 30 mg Q6H PRN IV Severe Breakthru Pain (>7) 01/13/20 07:00 01/18/20 06:59 01/13/20 07:00 Lisinopril (PriniviL) 40 mg DAILY ORAL 01/13/20 09:00 02/12/20 08:59 01/13/20 08:42 Nitroglycerin (Ntg) 0.4 mg Q5M X 3 DOSES PRN SL Prn Chest Pain 01/12/20 23:30 02/11/20 23:29 Ondansetron HCl (Zofran) 4 mg Q6H PRN IVP Nausea & Vomiting 01/12/20 23:30 02/11/20 23:29 Pantoprazole (Protonix) 40 mg DAILY@0630 IVP 01/13/20 06:30 02/12/20 06:29 01/13/20 06:39 Polyethylene Glycol (Miralax) 17 gm HSPRN PRN ORAL Constipation 01/12/20 23:30 02/11/20 23:29 Temazepam (Restoril) 15 mg HSPRN PRN ORAL Insomnia 01/12/20 23:30 01/19/20 23:29 Assessment/Plan Problem List: (1) Intractable abdominal pain Assessment & Plan: 44-year-old male status post laparoscopic gastric sleeve who developed postoperative abdominal pain. Leukocytosis, CT as below, elevated LFTs No acute surgical intervention indicated recommended Unfortunately given patient's body habitus and size upper GI difficult We will plan for oral contrast Gastrografin followed by CT to ensure no leak Trend LFTs. Will add IV contrast to CT scan to ensure hepatic vein appropriateness N.p.o. IV fluids We will follow with recommendations as imaging available thank you for let me participate in patient's care Discussed with patient's primary surgeon Dr. Nolan ICD Codes: R10.9 - Unspecified abdominal pain SNOMED: [id number] Wilfredo Hastings Jan 13, 2020 14:58
[2020-01-13 16:00] VITALS: BP 149/81
--- NOTE | 2020-01-13 17:35 | NUR ---
CASE MANAGEMENT: INITIAL REVIEW 44YR OLD MALE FROM FROM HOME CC: PAIN SI: INTRACTABLE ABD PAIN . POSTSURGICAL COMPLICATION 98.9 76 27 140/82 100% ON RA WBC 13.9 AST/ALT 885/304 IS:IV ZOFRAN X2 IV PEPCID X1 IV DILAUDID X2 IV TORADOL X1 \: 3E MED SURG UNIT DCP: HOME WHEN STABLE CASE MANAGEMENT: REVIEW 01/13/20 SI: INTRACTABLE ABD PAIN . POSTSURGICAL COMPLICATION 99.0 76 20 153/76 95% ON 2L NC WBC 12.3 AST/ALT 1136/347 BG 115 IS:IV DILAUDID Q2HR/PRN IV D5@75ML/HR HEPARIN SQ BID LISINOPRIL PO QD IV PROTONIX QD IV TORADOL Q6HR/PRN US ABD \: 3E MED SURG UNIT DCP: HOME WHEN STABLE PLAN: CT ABD/PEL WITH CONTRAST - PENDING
--- NOTE | 2020-01-13 18:02 | History & Physical ---
History and Physical History & Physicial Atenolol* (Tenormin*), 100 MG ORAL DAILY, (Reported) Lisinopril* (Lisinopril*), 40 MG ORAL DAILY, (Reported) Omeprazole (Omeprazole), 40 MG ORAL DAILY, (Reported) Manuel Ott MD Jan 13, 2020 18:02
--- NOTE | 2020-01-13 18:09 | Diagnostic Imaging Report ---
EXAM: CT Abdomen With Intravenous Contrast CLINICAL HISTORY: ABD PAIN TECHNIQUE: Axial computed tomography images of the abdomen with intravenous contrast. CTDI is 101.4 mGy and DLP is 4178.1 mGy-cm. One or more of the following dose reduction techniques were used: automated exposure control, adjustment of the mA and/or kV according to patient size, use of iterative reconstruction technique. COMPARISON: CT abdomen/pelvis on 01/12/2020 FINDINGS: Lung bases: Patchy densities in the left lower lobe may represent pneumonia. Mediastinum: Small amount of oral contrast in the distal esophagus. Liver: Unremarkable. No mass. Gallbladder and bile ducts: Unremarkable. No calcified stones. No ductal dilation. Pancreas: Unremarkable. No mass. No ductal dilation. Spleen: Unremarkable. No splenomegaly. Adrenals: Unremarkable. No mass. Kidneys and ureters: No hydronephrosis or stone. Stomach and bowel: Postsurgical changes of the stomach. Diverticulosis without evidence of diverticulitis. No bowel obstruction. Appendix: Normal appendix. Intraperitoneal space: Unremarkable. No free air. No significant fluid collection. Bones/joints: Pin through the left femoral neck. Fracture deformity of the left femur. Degenerative changes of left greater than right hips. Mild scoliosis. No dislocation. Soft tissues: Subcutaneous emphysema again noted in the anterior upper abdominal wall with mild fat stranding which may be related to recent surgery. Vasculature: Unremarkable. No abdominal aortic aneurysm. Lymph nodes: Unremarkable. No enlarged lymph nodes. IMPRESSION: 1. Patchy densities in the left lower lobe may represent pneumonia. 2. Subcutaneous emphysema again noted in the anterior upper abdominal wall with mild fat stranding which may be related to recent surgery.
--- NOTE | 2020-01-13 19:56 | NUR ---
HAND-OFF: Report given to TERESA Bear.
[2020-01-13 20:00] VITALS: BP 112/64
--- NOTE | 2020-01-13 20:00 | NUR ---
NURSE NOTES: Pt is alert, oriented x4 and verbally responsive. Breathing is even and unlabored. No respiratory distress noted. Denies pain or discomfort at this time. at bedside. Bed in low and locked position. Call light within reach. Will continue to monitor the pt.
--- NOTE | 2020-01-13 21:30 | NUR ---
NURSE NOTES: Called and received diet order from Dr Hastings, Bariatric clear liquid diet(only very small portion at a time). Order carried out. Informed pt about Bariatric clear liquid diet and pt verbalized understanding.
--- NOTE | 2020-01-13 21:30 | History and Physical Report ---
DATE OF ADMISSION: 01/12/2020 CHIEF COMPLAINT: Right flank pain. HISTORY OF PRESENT ILLNESS: This is a 44-year-old gentleman with past medical history significant for morbid obesity, status post laparoscopic gastric sleeve yesterday by Dr. Luis Manuel Nolan at [facility], history of hypertension presented to the hospital complaining about abdominal pain. The patient was at home, came to the emergency room at [facility] for evaluation, was noted to have leukocytosis with elevated liver function, intractable abdominal pain, and the patient subsequently was admitted to the hospital with transaminitis with acute postoperative pain of abdomen. MEDICATIONS: At home, please refer to medication reconciliation. ALLERGIES: No known drug allergies. PAST MEDICAL HISTORY/PAST SURGICAL HISTORY: Significant for laparoscopic gastric sleeve, history of morbid obesity with laparoscopic gastric sleeve, hypertension. SOCIAL HISTORY: Denies any smoking, alcohol, or drugs. He is . FAMILY HISTORY: Noncontributory. REVIEW OF SYSTEMS: Mostly as above. Denies any dysuria, frequency, or hematuria. Complained about decreased appetite. Denies any hemoptysis or hematochezia. Denies any bright red blood per rectum. PHYSICAL EXAMINATION: VITAL SIGNS: On admission, temperature 99, pulse of 76, respirations 27, blood pressure 140/82. GENERAL: The patient is awake, responsive, no acute distress. HEAD AND NECK: Pupils are equal and reactive to light. Extraocular movements intact. Neck was supple. No JVD. LUNGS: Good air entry. No wheezes or rales. Decreased air in bases. HEART: S1, S2. Regular rhythm and tachycardic. Distant heart sounds. ABDOMEN: Soft, nondistended. Tender in the epigastric area as well as the right flank area. No rebound tenderness. No fluid shift. Surgical incisions are intact. EXTREMITIES: No cyanosis, clubbing, or edema NEUROLOGIC: Cranial nerves II through XII grossly intact. Moves all 4 extremities. Gait is intact. RECTAL/GENITOURINARY: Refused and deferred. PSYCHIATRIC: Mood and affect is intact. LABORATORY DATA: On admission WBC of 13, hemoglobin of 15, hematocrit 46, platelets 295. Sodium 142, potassium 4.2, chloride 99, bicarbonate 30, BUN 18, creatinine 1.3, glucose is 126. AST of 885, ALT of 304. Total protein is 8.3. Amylase is 50. Lipase is 207. Urine is +2 protein, 5 to 10 blood, +1 ketone, negative leukocytes, few bacteria. The patient had a CT of the abdomen and pelvis, no acute findings, limited evaluation, osteoarthritis of the right hip, patchy ground-glass opacification in the lung base, nonspecified cardiomegaly, hiatal hernia, ventricular abdominal wall air with noted recent surgery. Abdominal ultrasound, fatty liver with limited evaluation due to the large bowel habit. ASSESSMENT: 1. Abdominal pain with transaminitis, possible due to recent surgery. 2. Morbid obesity, status post laparoscopic gastric sleeve. 3. Leukocytosis. PLAN: Admit the patient to surgical floor. We will follow up with Dr. Wilfredo Hastings from General Surgery, Dr. Varela from Pulmonary Critical Care, and Dr. Raines from Gastroenterology. We will follow up laboratory. IV hydration. Keep the patient NPO. Discussed with Dr. Nolan extensively with regard to the plan of care and discussed with at the bedside. We will monitor laboratory including liver function in the morning. Manuel Ott M.D. DR: ELY JOB#: [id number] CC:
[2020-01-14] VITALS (9 sets, daily range): BP systolic 90–137; BP diastolic 52–88
[2020-01-14] MEDS: D5 1/2NS 1,000 ML IV SCH ×2 (02:10→05:00)
--- NOTE | 2020-01-14 04:00 | NUR ---
NURSE NOTES: Administer Dilaudid 3mg for c/o pain 07/09 @3790.
[2020-01-14] MEDS: Pantoprazole Inj IVP SCH (06:00)
[2020-01-14 06:11] LABS: PHOSPHORUS 6.8 MG/DL (2.5-4.9)
[2020-01-14 06:15] LABS: BASOPHILS % (AUTO) 0.7 % (0.0-2.0); HEMATOCRIT 45.6 % (42.0-52.0); HEMOGLOBIN 15.1 G/DL (14.2-18.0); LYMPHOCYTES % (AUTO) 11.4 % (20.0-45.0); MEAN CORPUSCULAR VOLUME 98 FL (80-99); MONOCYTES % (AUTO) 7.8 % (1.0-10.0); PLATELET COUNT 269 K/UL (150-450); RED BLOOD COUNT 4.67 M/UL (4.70-6.10); RED CELL DISTRIBUTION WIDTH 13.6 % (11.6-14.8)
[2020-01-14 06:19] LABS: ALANINE AMINOTRANSFERASE 1234 U/L (12-78); ALBUMIN 3.8 G/DL (3.4-5.0); ALBUMIN/GLOBULIN RATIO 0.9 (1.0-2.7); ALKALINE PHOSPHATASE 64 U/L (46-116); ANION GAP 10 mmol/L (5-15); ASPARTATE AMINO TRANSFERASE 1401 U/L (15-37); BILIRUBIN,TOTAL 0.7 MG/DL (0.2-1.0); BLOOD UREA NITROGEN 34 mg/dL (7-18); CALCIUM 9.2 MG/DL (8.5-10.1); CARBON DIOXIDE 30 MMOL/L (21-32); CHLORIDE 103 MMOL/L (98-107); CREATININE 3.2 MG/DL (0.55-1.30); SODIUM 143 MMOL/L (136-145)
--- NOTE | 2020-01-14 07:35 | Pulmonology Progress Note ---
Assessment/Plan Assessment/Plan ASSESSMENT Acute postoperative abdominal pain ARF possibly due to rhabdo Rhabdomyolysis Transaminitis Status post lap gastric sleeve surgery Morbid obesity Mild leukocytosis-resolved PLAN OF CARE ICU NPO aggressive IVF , monitor renal parameters, lytes, avoid nephrotoxics off KARIN and Toradol nephro on board Ambriz ion, urine studies trend CK, LFT, lipase CT scan A/P noted , no acute findings heparin gtt gen surgery follows GI on board abdominal ultrasound- with fatty liver hepatitis panel pt's surgeon requesting transfer to [facility] pain management surgery on board => no acute surgical intervention planned at this time mild leukocytosis , resolved, remains afebrile , no evidence of infection on CT scan DVT GI prophylaxis supportive care BP management bowel regimen supportive care case discussed and evaluated by supervising physician Subjective Allergies: Coded Allergies: No Known Allergies (Unverified , 01/12/20) Subjective c/o right sided back pain, labs pending this is later note: labs with ARF, elevated LFT and CK transferred to ICU Objective Last 24 Hour Vital Signs Date Time Temp Pulse Resp B/P (MAP) Pulse Ox O2 Delivery O2 Flow Rate FiO2 01/14/20 04:00 97.6 91 18 113/62 (79) 95 01/14/20 00:00 98.4 89 18 118/68 (85) 95 01/13/20 21:00 Nasal Cannula 2.0 01/13/20 20:00 98.2 91 20 112/64 (80) 94 01/13/20 16:00 98.7 78 20 149/81 (103) 94 01/13/20 12:00 99.0 76 20 153/76 (101) 95 01/13/20 09:00 Nasal Cannula 2.0 01/13/20 08:42 132/78 01/13/20 08:42 77 132/78 01/13/20 08:00 99.1 77 20 132/78 (96) 94 Intake and Output 01/13/20 01/14/20 19:00 07:00 Intake Total 375 ml 825 ml Balance 375 ml 825 ml Intake IV Total 375 ml 825 ml General Appearance: no acute distress, other - AA morbidly obese middle age male HEENT: normocephalic, atraumatic, anicteric, mucous membranes moist Respiratory/Chest: lungs clear, no respiratory distress, no accessory muscle use Cardiovascular: normal peripheral pulses, normal rate Abdomen: normal bowel sounds, soft, non tender, other - small steri strips C/D/ I Genitourinary: other - Ambriz Extremities: no edema, pedal pulses normal Skin: no rash, no ulcers Neurologic/Psychiatric: patient observation assistant II-XII grossly normal, no motor/sensory deficits, alert, oriented x 3, responsive Musculoskeletal: normal muscle bulk, other - right sided flank pain Laboratory Tests 01/14/20 05:10: White Blood Count 9.0, Red Blood Count 4.67L, Hemoglobin 15.1, Hematocrit 45.6, Mean Corpuscular Volume 98, Mean Corpuscular Hemoglobin 32.4H, Mean Corpuscular Hemoglobin Concent 33.2, Red Cell Distribution Width 13.6, Platelet Count 269, Mean Platelet Volume 6.1L, Neutrophils (%) (Auto) 80.0H, Lymphocytes (%) (Auto) 11.4L, Monocytes (%) (Auto) 7.8, Eosinophils (%) (Auto) 0.0, Basophils (%) (Auto ) 0.7, Erythrocyte Sedimentation Rate [Pending], Sodium Level 143, Potassium Level 5.0, Chloride Level 103, Carbon Dioxide Level 30, Anion Gap 10, Blood Urea Nitrogen 34H, Creatinine 3.2#H, Estimat Glomerular Filtration Rate 25.9, Glucose Level 106, Calcium Level 9.2, Phosphorus Level 6.8H, Magnesium Level 2.8H, Total Bilirubin 0.7, Aspartate Amino Transf (AST/SGOT) 1401H, Alanine Aminotransferase (ALT/SGPT) 1234H, Alkaline Phosphatase 64, C-Reactive Protein, Quantitative 7.5H, Total Protein 7.9, Albumin 3.8, Globulin 4.1, Albumin/ Globulin Ratio 0.9L, Amylase Level 205H, Lipase 754H, Hepatitis A IgM Antibody [ Pending], Hepatitis B Surface Antigen [Pending], Hepatitis B Core IgM Antibody [ Pending], Hepatitis C Antibody [Pending] Current Medications Medications (Trade) Dose Ordered Sig/Chris Route PRN Reason Start Time Stop Time Status Last Admin Dose Admin Acetaminophen (Tylenol) 650 mg Q4H PRN ORAL fever 01/12/20 23:30 02/11/20 23:29 Atenolol (Tenormin) 100 mg DAILY ORAL 01/13/20 09:00 02/12/20 08:59 2/14/20 08:42 Barium Sulfate (Barium EZ Gas II) 1 ea NOW PRN Radiology Procedure 01/13/20 10:00 Barium Sulfate (Barium EZ HD) 1 ea NOW PRN Radiology Procedure 01/13/20 10:00 Barium Sulfate (Readi-Cat 2) 450 ml NOW PRN ORAL Radiology Procedure 01/13/20 14:30 01/15/20 14:17 Barium Sulfate (Varibar Thin Liquid powder) 148 gm NOW PRN Radiology Procedure 01/13/20 10:00 Dextrose (Dextrose 50%) 25 ml Q30M PRN IV Hypoglycemia 01/12/20 23:30 02/11/20 23:29 Dextrose (Dextrose 50%) 50 ml Q30M PRN IV Hypoglycemia 01/12/20 23:30 02/11/20 23:29 Dextrose/Sodium Chloride 1,000 ml @ 75 mls/hr [id number] IV 01/12/20 23:30 02/11/20 23:29 01/14/20 05:00 Diatrizoate Meglum/ Diatrizoate Sod (Gastrografin) 30 ml NOW PRN ORAL Radiology Procedure 01/13/20 14:30 01/15/20 14:17 Diphenhydramine HCl (Benadryl) 25 mg Q6H PRN ORAL Itching/Pruritis 01/12/20 23:30 02/11/20 23:29 Heparin Sodium (Porcine) (Heparin 5000 units/ml) 5,000 units EVERY 12 HOURS SUBQ 01/13/20 09:00 02/12/20 08:59 01/13/20 22:03 Hydromorphone HCl (Dilaudid) 3 mg Q2H PRN IVP Severe Pain (Pain Scale 7-10) 01/13/20 09:30 01/20/20 09:29 01/14/20 04:00 Iohexol (OMNIPAQUE-300 100ml) 100 ml NOW PRN INJ Radiology Procedure 01/13/20 14:30 01/15/20 14:17 Ketorolac Tromethamine (Toradol 30mg) 30 mg Q6H PRN IV Severe Breakthru Pain (>7) 01/13/20 07:00 01/18/20 06:59 01/13/20 07:00 Lisinopril (PriniviL) 40 mg DAILY ORAL 01/13/20 09:00 02/12/20 08:59 01/13/20 08:42 Nitroglycerin (Ntg) 0.4 mg Q5M X 3 DOSES PRN SL Prn Chest Pain 01/12/20 23:30 02/11/20 23:29 Ondansetron HCl (Zofran) 4 mg Q6H PRN IVP Nausea & Vomiting 01/12/20 23:30 02/11/20 23:29 Pantoprazole (Protonix) 40 mg DAILY@0630 IVP 01/13/20 06:30 02/12/20 06:29 01/14/20 06:00 Polyethylene Glycol (Miralax) 17 gm HSPRN PRN ORAL Constipation 01/12/20 23:30 02/11/20 23:29 Temazepam (Restoril) 15 mg HSPRN PRN ORAL Insomnia 01/12/20 23:30 01/19/20 23:29 Brook Bosch NP Jan 14, 2020 07:35
--- NOTE | 2020-01-14 08:11 | NUR ---
HAND-OFF: Report given to TERESA Serrano.
--- NOTE | 2020-01-14 08:19 | NUR ---
NURSE NOTES: Patient asleep, on Nasal cannula 2 Liters, no sing of distress and shortness of breath; no sing of chest pain; family member at the bed side; IV Left AC 20G D5NS @75cc running; Urinal within reach; side rails up x2, breaks engaged, bed at lowest position; call light [id number] reach; will keep monitoring.
[2020-01-14] MEDS: Lisinopril 20mg tab ORAL SCH (09:00)
[2020-01-14] MEDS: Heparin 5000 units/ml inj SUBQ SCH (09:16)
[2020-01-14] MEDS ORDERED: Heparin 5000 units/ml inj IV ONE ×2 (14:45→23:00)
[2020-01-14] MEDS ORDERED: D5NS 1,000 ML IV SCH (14:45)
--- NOTE | 2020-01-14 14:46 | Surgery Progress Note ---
Surgery Progress Note Subjective Additional Comments worsening lft's renal function noted too much pain meds discussed with patient, family, and primary surgeon Objective Last 24 Hour Vital Signs Date Time Temp Pulse Resp B/P (MAP) Pulse Ox O2 Delivery O2 Flow Rate FiO2 01/14/20 12:00 98.4 69 20 101/52 (68) 95 01/14/20 09:50 98.4 01/14/20 09:00 104/72 01/14/20 09:00 103 104/72 01/14/20 09:00 Nasal Cannula 2.0 01/14/20 08:00 98.4 103 19 104/72 (83) 93 01/14/20 04:00 97.6 91 18 113/62 (79) 95 01/14/20 00:00 98.4 89 18 118/68 (85) 95 01/13/20 21:00 Nasal Cannula 2.0 01/13/20 20:00 98.2 91 20 112/64 (80) 94 01/13/20 16:00 98.7 78 20 149/81 (103) 94 I&O Intake and Output 01/13/20 01/14/20 19:00 07:00 Intake Total 375 ml 825 ml Balance 375 ml 825 ml IV Total 375 ml 825 ml Dressing: dry Wound: clean Cardiovascular: RSR Respiratory: clear, decreased breath sounds Abdomen: soft, tenderness, decreased bowel sounds Extremities: no cyanosis Laboratory Tests Test 01/14/20 05:10 White Blood Count 9.0 K/UL (4.8-10.8) Red Blood Count 4.67 M/UL (4.70-6.10) L Hemoglobin 15.1 G/DL (14.2-18.0) Hematocrit 45.6 % (42.0-52.0) Mean Corpuscular Volume 98 FL (80-99) Mean Corpuscular Hemoglobin 32.4 PG (27.0-31.0) H Mean Corpuscular Hemoglobin Concent 33.2 G/DL (32.0-36.0) Red Cell Distribution Width 13.6 % (11.6-14.8) Platelet Count 269 K/UL (150-450) Mean Platelet Volume 6.1 FL (6.5-10.1) L Neutrophils (%) (Auto) 80.0 % (45.0-75.0) H Lymphocytes (%) (Auto) 11.4 % (20.0-45.0) L Monocytes (%) (Auto) 7.8 % (1.0-10.0) Eosinophils (%) (Auto) 0.0 % (0.0-3.0) Basophils (%) (Auto) 0.7 % (0.0-2.0) Erythrocyte Sedimentation Rate 24 MM/HR (0-15) H Sodium Level 143 MMOL/L (136-145) Potassium Level 5.0 MMOL/L (3.5-5.1) Chloride Level 103 MMOL/L (98-107) Carbon Dioxide Level 30 MMOL/L (21-32) Anion Gap 10 mmol/L (5-15) Blood Urea Nitrogen 34 mg/dL (7-18) H Creatinine 3.2 MG/DL (0.55-1.30) #H Estimat Glomerular Filtration Rate 25.9 mL/min (>60) Glucose Level 106 MG/DL (74-106) Calcium Level 9.2 MG/DL (8.5-10.1) Phosphorus Level 6.8 MG/DL (2.5-4.9) H Magnesium Level 2.8 MG/DL (1.8-2.4) H Total Bilirubin 0.7 MG/DL (0.2-1.0) Aspartate Amino Transf (AST/SGOT) 1401 U/L (15-37) H Alanine Aminotransferase (ALT/SGPT) 1234 U/L (12-78) H Alkaline Phosphatase 64 U/L (46-116) C-Reactive Protein, Quantitative 7.5 mg/dL (0.00-0.90) H Total Protein 7.9 G/DL (6.4-8.2) Albumin 3.8 G/DL (3.4-5.0) Globulin 4.1 g/dL Albumin/Globulin Ratio 0.9 (1.0-2.7) L Amylase Level 205 U/L (25-115) H Lipase 754 U/L (73-393) H Hepatitis A IgM Antibody Pending Hepatitis B Surface Antigen Pending Hepatitis B Core IgM Antibody Pending Hepatitis C Antibody Pending Plan Problems: (1) Intractable abdominal pain Assessment & Plan: 44-year-old male status post laparoscopic gastric sleeve who developed postoperative abdominal pain. Leukocytosis, CT as below, elevated LFTs No acute surgical intervention indicated recommended Unfortunately given patient's body habitus and size upper GI difficult We will plan for oral contrast Gastrografin followed by CT to ensure no leak Trend LFTs. Will add IV contrast to CT scan to ensure hepatic vein appropriateness N.p.o. IV fluids We will follow with recommendations as imaging available thank you for let me participate in patient's care Discussed with patient's primary surgeon Dr. Nolan worsening labs CT repeat noted. no leak. no thrombus seen by radiology receiving too much pain meds npo iv fluids heparin gtt nephrology consult trend labs IV fluids bolus Wilfredo Hastings Jan 14, 2020 14:46
--- NOTE | 2020-01-14 15:23 | Consultation ---
Consult Note Consult Note Asked to eval for rapid rise in serum Cr Patient interviewed present examined data reviewed This is a 44-year-old gentleman with past medical history significant for morbid obesity, status post laparoscopic gastric sleeve yesterday by Dr. Luis Manuel Nolan at [facility], history of hypertension presented to the hospital complaining about abdominal pain. The patient was at home, came to the emergency room at [facility] for evaluation, was noted to have leukocytosis with elevated liver function, intractable abdominal pain, and the patient subsequently was admitted to the hospital with transaminitis with acute postoperative pain of abdomen. . Assessment/Plan IVONNE Rapid rise in LFTs and Lipase s/p Sleeve gastric surgery h/o HTN NPO TALIB Ambriz stop LISINOPRIL AND TORADOL Kidney ASTER urine studies discussed with Andrea Ott and Yo Chan MD Jan 14, 2020 15:22
[2020-01-14] MEDS ORDERED: Heparin 25,000u/D5W 500ml 500 ML IV SCH ×3 (15:30→17:45)
[2020-01-14] MEDS ORDERED: HYDROmorphone 1mg/ml Carpuject IVP PRN (15:30)
--- NOTE | 2020-01-14 15:33 | NUR ---
NURSE NOTES: I received order from MD Rodriguez for insertion for Ambriz; 16 croatian Ambriz inserted, patient tolerated well; will keep monitoring.
--- NOTE | 2020-01-14 16:15 | General Progress Note ---
Assessment/Plan Assessment/Plan: Assessment - progressive transaminitis, ? Rhabdo - ATN, ? etiology, ? Rhabdo - (R) R flank poin - morbid obesity Recommendations - check CK - check vascular study of liver - follow LFT Subjective Allergies: Coded Allergies: No Known Allergies (Unverified , 01/12/20) Objective Last 24 Hour Vital Signs Date Time Temp Pulse Resp B/P (MAP) Pulse Ox O2 Delivery O2 Flow Rate FiO2 01/14/20 12:00 98.4 69 20 101/52 (68) 95 01/14/20 09:50 98.4 01/14/20 09:00 104/72 01/14/20 09:00 103 104/72 01/14/20 09:00 Nasal Cannula 2.0 01/14/20 08:00 98.4 103 19 104/72 (83) 93 01/14/20 04:00 97.6 91 18 113/62 (79) 95 01/14/20 00:00 98.4 89 18 118/68 (85) 95 01/13/20 21:00 Nasal Cannula 2.0 01/13/20 20:00 98.2 91 20 112/64 (80) 94 Intake and Output 01/13/20 01/14/20 19:00 07:00 Intake Total 375 ml 825 ml Balance 375 ml 825 ml IV Total 375 ml 825 ml Laboratory Tests 01/14/20 05:10: White Blood Count 9.0, Red Blood Count 4.67L, Hemoglobin 15.1, Hematocrit 45.6, Mean Corpuscular Volume 98, Mean Corpuscular Hemoglobin 32.4H, Mean Corpuscular Hemoglobin Concent 33.2, Red Cell Distribution Width 13.6, Platelet Count 269, Mean Platelet Volume 6.1L, Neutrophils (%) (Auto) 80.0H, Lymphocytes (%) (Auto) 11.4L, Monocytes (%) (Auto) 7.8, Eosinophils (%) (Auto) 0.0, Basophils (%) (Auto ) 0.7, Erythrocyte Sedimentation Rate 24H, Sodium Level 143, Potassium Level 5.0 , Chloride Level 103, Carbon Dioxide Level 30, Anion Gap 10, Blood Urea Nitrogen 34H, Creatinine 3.2#H, Estimat Glomerular Filtration Rate 25.9, Glucose Level 106, Calcium Level 9.2, Phosphorus Level 6.8H, Magnesium Level 2.8H, Total Bilirubin 0.7, Aspartate Amino Transf (AST/SGOT) 1401H, Alanine Aminotransferase (ALT/SGPT) 1234H, Alkaline Phosphatase 64, C-Reactive Protein, Quantitative 7.5H, Total Protein 7.9, Albumin 3.8, Globulin 4.1, Albumin/ Globulin Ratio 0.9L, Amylase Level 205H, Lipase 754H, Hepatitis A IgM Antibody [ Pending], Hepatitis B Surface Antigen [Pending], Hepatitis B Core IgM Antibody [ Pending], Hepatitis C Antibody [Pending] 01/14/20 15:15: Activated Partial Thromboplast Time 25 Height (Feet): 6 Height (Inches): 0.00 Weight (Pounds): 394 Ranjeet Campa MD Jan 14, 2020 16:15
[2020-01-14 16:40] LABS: CREATINE KINASE > 10000 U/L (26-308)
[2020-01-14 17:21] LABS: ANION GAP 12 mmol/L (5-15); BLOOD UREA NITROGEN 53 mg/dL (7-18); CALCIUM 8.8 MG/DL (8.5-10.1); CARBON DIOXIDE 30 MMOL/L (21-32); CHLORIDE 104 MMOL/L (98-107); CREATININE 5.4 MG/DL (0.55-1.30); POTASSIUM 4.8 MMOL/L (3.5-5.1); SODIUM 146 MMOL/L (136-145)
--- NOTE | 2020-01-14 17:30 | NUR ---
NURSE NOTES: Patient received from Shaheen Serrano RN. Patient observed to be in acute distress and when asked to rate his pain, he stated that he was in 10/10 pain. When asked if his pain was from his surgical site, he stated no, he pointed to the R flank. Patient stated that he was not feeling any pain from his surgical site only his R flank. Patient was guarding, moaning and grimacing. Patient was immediately given his pain meds with improvement. Patient is AAO x 4. Patient was put on the monitoring and evaluation advisor with VS HR 89 BP 100/76 SPO2 94% on 2L NC and RR 19. Patient's fiance is bedside. Patient has Ambriz catheter however not draining anything for urine output. Patient has LAC 20G running Heparin at 14 units/kg/hr and D5NS @ 150 mg running. A renal U/S has been ordered STAT however no one has come to perform. Will follow up on the order KONG. Next PTT is for 2215. Safety measures are in place with the bed locked in the lowest position with the call light within reach. Will monitor the patient and carry out the patient's plan of care.
[2020-01-14] MEDS ORDERED: DiphenhydrAMINE 25mg Tab ORAL PRN (17:45)
[2020-01-14] MEDS ORDERED: Omnipaque-300 100ml vial INJ PRN (17:45)
[2020-01-14] MEDS ORDERED: Barium EZ Gas II granules MC PRN (17:45)
[2020-01-14] MEDS ORDERED: Barium EZ HD MC PRN (17:45)
[2020-01-14] MEDS ORDERED: Gastrograffin 30ml ORAL PRN (17:45)
[2020-01-14] MEDS ORDERED: Nitroglycerin Subl 0.4mg tab SL PRN (17:45)
[2020-01-14] MEDS ORDERED: Varibar Thin Liquid powder 148gm MC PRN (17:45)
--- NOTE | 2020-01-14 17:45 | NUR ---
NURSE NOTES: Patient transferred to ICU 246-B; report given to KatarzynaCharge Nurse; patient's belongings signed by transferring and receiving charge nurse; Heparin drip and D5NS running at Left AC; Ambriz in place; patient on Nasal cannula 2 Liters upon transfer;
[2020-01-14] MEDS: HYDROmorphone 1mg/ml Carpuject IVP PRN ×2 (17:49→22:47)
--- NOTE | 2020-01-14 17:53 | NUR ---
NURSE NOTES: Papers to be faxed to [facility] endorsed to Tessa;
[2020-01-14] MEDS: D5NS 1,000 ML IV SCH ×2 (17:55→22:44)
--- NOTE | 2020-01-14 18:20 | NUR ---
NURSE NOTES: Called Radiology to follow up on the Renal Ultrasound. Called Dr Farnsworth to let him know that study had not been done yet.
--- NOTE | 2020-01-14 18:40 | NUR ---
NURSE NOTES: [facility] called to request FS and H&P to review for transfer. Dr Nolan from [facility] has also called because he wants patient transferred to [facility] as well. Mick MORGAN requested to speak to diego. She spoke to him about case. Will coordinate transfer with records to transfer patient.
--- NOTE | 2020-01-14 18:48 | Internal Med Progress Note ---
Subjective Date of Service: Jan 14, 2020 Physician Name ChengAbimael Attending Physician Manuel Ott MD Current Medications Medications (Trade) Dose Ordered Sig/Chris Route PRN Reason Start Time Stop Time Status Last Admin Dose Admin Barium Sulfate (Barium EZ Gas II) 1 ea NOW PRN [facility] Radiology Procedure 01/14/20 17:45 01/15/20 17:44 Barium Sulfate (Barium EZ HD) 1 ea NOW PRN [facility] Radiology Procedure 01/14/20 17:45 01/15/20 09:59 Barium Sulfate (Readi-Cat 2) 450 ml NOW PRN ORAL Radiology Procedure 01/14/20 17:45 01/15/20 17:44 Barium Sulfate (Varibar Thin Liquid powder) 148 gm NOW PRN MC Radiology Procedure 01/14/20 17:45 01/15/20 09:59 Dextrose (Dextrose 50%) 25 ml Q30M PRN IV Hypoglycemia 01/14/20 18:00 02/11/20 23:29 Dextrose (Dextrose 50%) 50 ml Q30M PRN IV Hypoglycemia 01/14/20 18:00 02/11/20 23:29 Dextrose/Sodium Chloride 1,000 ml @ 150 mls/hr Q6H40M IV 01/14/20 17:45 02/13/20 14:44 01/14/20 17:55 Diatrizoate Meglum/ Diatrizoate Sod (Gastrografin) 30 ml NOW PRN ORAL Radiology Procedure 01/14/20 17:45 01/15/20 14:17 Diphenhydramine HCl (Benadryl) 25 mg Q6H PRN ORAL Itching/Pruritis 01/14/20 17:45 02/11/20 17:44 Heparin Sodium/ Dextrose 500 ml @ 44.452 mls/ hr ADJUST PER PROTOCOL IV 01/14/20 17:45 02/13/20 17:44 01/14/20 17:57 Hydromorphone HCl (Dilaudid) 1 mg Q2H PRN IVP Severe Pain (Pain Scale 7-10) 01/14/20 17:45 01/21/20 17:44 01/14/20 17:49 Iohexol (OMNIPAQUE-300 100ml) 100 ml NOW PRN INJ Radiology Procedure 01/14/20 17:45 01/15/20 14:17 Nitroglycerin (Ntg) 0.4 mg Q5M X 3 DOSES PRN SL Prn Chest Pain 01/14/20 17:45 02/11/20 23:29 Ondansetron HCl (Zofran) 4 mg Q6H PRN IVP Nausea & Vomiting 01/14/20 17:45 02/11/20 17:44 Pantoprazole (Protonix) 40 mg Q12HR IVP 01/14/20 21:00 02/12/20 06:29 Polyethylene Glycol (Miralax) 17 gm HSPRN PRN ORAL Constipation 01/14/20 21:00 02/11/20 20:59 Temazepam (Restoril) 15 mg HSPRN PRN ORAL Insomnia 01/14/20 21:00 01/19/20 20:59 Allergies: Coded Allergies: No Known Allergies (Unverified , 01/12/20) ROS Limited/Unobtainable: No Constitutional: Reports: no symptoms HEENT: Reports: no symptoms Cardiovascular: Reports: no symptoms Respiratory: Reports: no symptoms Gastrointestinal/Abdominal: Reports: abdominal pain Genitourinary: Reports: no symptoms Neurologic/Psychiatric: Reports: no symptoms Subjective 44 YO M admitted with abdominal pain. Now elevated liver enzymes, pancreatitis and rhabdomyolys. ICU Objective Last Vital Signs Date Time Temp Pulse Resp B/P (MAP) Pulse Ox O2 Delivery O2 Flow Rate FiO2 01/14/20 16:15 98.4 01/14/20 16:00 63 20 103/67 (79) 95 01/14/20 09:00 Nasal Cannula 2.0 Laboratory Tests Test 01/14/20 05:10 01/14/20 15:15 White Blood Count 9.0 K/UL (4.8-10.8) Red Blood Count 4.67 M/UL (4.70-6.10) L Hemoglobin 15.1 G/DL (14.2-18.0) Hematocrit 45.6 % (42.0-52.0) Mean Corpuscular Volume 98 FL (80-99) Mean Corpuscular Hemoglobin 32.4 PG (27.0-31.0) H Mean Corpuscular Hemoglobin Concent 33.2 G/DL (32.0-36.0) Red Cell Distribution Width 13.6 % (11.6-14.8) Platelet Count 269 K/UL (150-450) Mean Platelet Volume 6.1 FL (6.5-10.1) L Neutrophils (%) (Auto) 80.0 % (45.0-75.0) H Lymphocytes (%) (Auto) 11.4 % (20.0-45.0) L Monocytes (%) (Auto) 7.8 % (1.0-10.0) Eosinophils (%) (Auto) 0.0 % (0.0-3.0) Basophils (%) (Auto) 0.7 % (0.0-2.0) Erythrocyte Sedimentation Rate 24 MM/HR (0-15) H Sodium Level 143 MMOL/L (136-145) 146 MMOL/L (136-145) H Potassium Level 5.0 MMOL/L (3.5-5.1) 4.8 MMOL/L (3.5-5.1) Chloride Level 103 MMOL/L (98-107) 104 MMOL/L (98-107) Carbon Dioxide Level 30 MMOL/L (21-32) 30 MMOL/L (21-32) Anion Gap 10 mmol/L (5-15) 12 mmol/L (5-15) Blood Urea Nitrogen 34 mg/dL (7-18) H 53 mg/dL (7-18) H Creatinine 3.2 MG/DL (0.55-1.30) #H 5.4 MG/DL (0.55-1.30) #H Estimat Glomerular Filtration Rate 25.9 mL/min (>60) 14.2 mL/min (>60) Glucose Level 106 MG/DL (74-106) 125 MG/DL (74-106) H Calcium Level 9.2 MG/DL (8.5-10.1) 8.8 MG/DL (8.5-10.1) Phosphorus Level 6.8 MG/DL (2.5-4.9) H Magnesium Level 2.8 MG/DL (1.8-2.4) H Total Bilirubin 0.7 MG/DL (0.2-1.0) Aspartate Amino Transf (AST/SGOT) 1401 U/L (15-37) H Alanine Aminotransferase (ALT/SGPT) 1234 U/L (12-78) H Alkaline Phosphatase 64 U/L (46-116) C-Reactive Protein, Quantitative 7.5 mg/dL (0.00-0.90) H Total Protein 7.9 G/DL (6.4-8.2) Albumin 3.8 G/DL (3.4-5.0) Globulin 4.1 g/dL Albumin/Globulin Ratio 0.9 (1.0-2.7) L Amylase Level 205 U/L (25-115) H Lipase 754 U/L (73-393) H Hepatitis A IgM Antibody Pending Hepatitis B Surface Antigen Pending Hepatitis B Core IgM Antibody Pending Hepatitis C Antibody Pending Activated Partial Thromboplast Time 25 SEC (23-33) Total Creatine Kinase > 16215 U/L (26-308) H Intake and Output 01/13/20 01/14/20 19:00 07:00 Intake Total 375 ml 825 ml Balance 375 ml 825 ml IV Total 375 ml 825 ml Objective PHYSICAL EXAMINATION: GENERAL: The patient is awake, responsive, no acute distress. HEAD AND NECK: Pupils are equal and reactive to light. Extraocular movements intact. Neck was supple. No JVD. LUNGS: Good air entry. No wheezes or rales. Decreased air in bases. HEART: S1, S2. Regular rhythm and tachycardic. Distant heart sounds. ABDOMEN: Soft, nondistended. Tender in the epigastric area as well as the right flank area. No rebound tenderness. No fluid shift. Surgical incisions are intact. EXTREMITIES: No cyanosis, clubbing, or edema NEUROLOGIC: Cranial nerves II through XII grossly intact. Moves all 4 extremities. Gait is intact. RECTAL/GENITOURINARY: Refused and deferred. PSYCHIATRIC: Mood and affect is intact. Assessment/Plan Assessment/Plan ASSESSMENT: 1. Abdominal pain with transaminitis, possible due to recent surgery. 2. Morbid obesity, status post laparoscopic gastric sleeve. 3. Leukocytosis. 4. Rhabdomyolysis 5. Pancreatitis 6. Acute renal failure 7. Post op laparoscopic gastric sleve 8. Elevated liver funct tests PLAN: 1. ICU Status 2. Dr. Wilfredo Hastings = General Surgery, 3. Dr. Varela = Pulmonary Critical Care 4. Dr. Raines = Gastroenterology 5. Surgery from [facility]-Dr Nolan asking for transfer to [facility] 6. Keep the patient NPO. 7. Dr Ott Discussed with Dr. Nolan extensively with regard to the plan of care and discussed with at the bedside. We will monitor laboratory including liver function in the morning. Abimael Cheng MD Jan 14, 2020 18:48
--- NOTE | 2020-01-14 19:30 | NUR ---
HAND-OFF: Report given to Brook, child welfare worker. Patient with VSS and in stable condition. Endorsed that patient is a possible transfer. US of kidney performed however another US to be performed. US tech was called again by Brook to ensure it was done.
--- NOTE | 2020-01-14 20:00 | NUR ---
NURSE NOTES: received in no distress, no complaints of pain at this time, child monitor shows nsr with hr 80's/min,o2 sat 95-97% on [id number],bp 90/59,us of art/toan of abd/ pelvis to evaluate hepatic vessels for dvt being done, iv site to left ac good, no swelling noted and heparin drip at 14 units/kg/hr infusing, has ivf of d5ns at 150ml/hr infusing, abd distended but soft to touch, steri strips intact to surgical site on the abd, schuler cath intact and patent with cloudy, dark donna urine
--- NOTE | 2020-01-14 20:17 | Diagnostic Imaging Report ---
EXAM: US Retroperitoneal Limited, Renal CLINICAL HISTORY: ABN LABS TECHNIQUE: Real-time ultrasound of the retroperitoneum (limited) with image documentation. COMPARISON: No relevant prior studies available. FINDINGS: Right kidney: Right kidney measures 11.3 x 6.2 x 5.7 cm. No hydronephrosis. Left kidney: Left kidney measures 13.5 x 6.8 x 7.2 cm. No hydronephrosis. Bladder: The bladder is decompressed by Ambriz catheter. IMPRESSION: No hydronephrosis.
[2020-01-14] MEDS ORDERED: Miralax 17gm pkt ORAL PRN (21:00)
[2020-01-14] MEDS ORDERED: Pantoprazole Inj IVP SCH ×2 (21:00)
--- NOTE | 2020-01-14 21:00 | NUR ---
NURSE NOTES: bladder scan done with 0 urine
--- NOTE | 2020-01-14 21:30 | NUR ---
NURSE NOTES: [facility] called(tamir), they have a bed in telemetry for the patient room [id number]
--- NOTE | 2020-01-14 21:47 | Diagnostic Imaging Report ---
EXAM: US Abdomen Complete CLINICAL HISTORY: ABN LABS TECHNIQUE: Real-time ultrasound of the abdomen (complete) with image documentation. COMPARISON: No relevant prior studies available. FINDINGS: Liver: Echogenic liver suggesting fatty infiltration or hepatocellular disease. No hepatic venous thrombosis demonstrated. Gallbladder: No gallstones or biliary ductal dilatation. Common bile duct: Unremarkable as visualized. Pancreas: Limited visualization. Kidneys: No hydronephrosis. Spleen: No splenomegaly. Aorta: Aorta is obscured by bowel gas. Inferior vena cava: Unremarkable as visualized. IMPRESSION: No acute findings.
--- NOTE | 2020-01-14 21:50 | NUR ---
NURSE NOTES: [facility] called (mirta) to arrange ambulance transportation,eta [id number]
--- NOTE | 2020-01-14 22:47 | NUR ---
NURSE NOTES: complaint of mod abd pain, dilaudid 1 mg iv given
--- NOTE | 2020-01-14 23:00 | NUR ---
NURSE NOTES: ptt 32 sec, heparin 12,500 units bolus given iv and will increase heparin drip to 18 units/kg/hr
--- NOTE | 2020-01-14 23:15 | NUR ---
NURSE NOTES: report given to veronica at [facility]
--- NOTE | 2020-01-14 23:20 | NUR ---
NURSE NOTES: dr jones called to verify if heparin drip to be continued, he said yes
[2020-01-14] MEDS: Heparin 25,000u/D5W 500ml 500 ML IV SCH (23:30)
[2020-01-15] VITALS: BP 112/67
[2020-01-15 01:00] VITALS: BP 118/69
--- NOTE | 2020-01-15 01:00 | NUR ---
NURSE NOTES: sleeping comfortably, urine output remains cloudy,dark donna,amount improving
[2020-01-15 02:00] VITALS: BP 129/67
--- NOTE | 2020-01-15 02:00 | NUR ---
NURSE NOTES: [facility] called x4 for delay of spanish moss picker, original eta [id number]
[2020-01-15] MEDS: HYDROmorphone 1mg/ml Carpuject IVP PRN (02:53)
[2020-01-15] MEDS: Heparin 25,000u/D5W 500ml 500 ML IV SCH (02:55)
[2020-01-15 03:00] VITALS: BP 118/52
--- NOTE | 2020-01-15 03:00 | NUR ---
NURSE NOTES: dilaudid 1 mg given iv for mod pain to abd radiating to right flank
--- NOTE | 2020-01-15 03:30 | NUR ---
NURSE NOTES: verbalized relief of pain
[2020-01-15 04:00] VITALS: BP 109/54
[2020-01-15] MEDS ORDERED: D5NS 1000ml IV ONE (04:14)
--- NOTE | 2020-01-15 04:15 | NUR ---
NURSE NOTES: [facility] acls finally here, belongings sent with the significant other, in no distress, in no pain, iv site to left ac good with no redness nor swelling
--- NOTE | 2020-01-16 14:09 | NUR ---
*-* INSURANCE *-* ALL CLINICALS AND REVIEWS HAVE BEEN FAXED TO: [facility] P: [phone] C: [phone] F: [phone] (FAX ALL CLINICALS)
--- NOTE | 2020-01-17 11:48 | Discharge Summary ---
Discharge Summary Discharge Summary _ DATE OF ADMISSION: 01/12/2020 DATE OF DISCHARGE: 01/15/2020 DISCHARGED BY: Dr. Ott REASON FOR ADMISSION: 44 years old male after recent gastric sleeve surgery, presented with complaint of right flank pain and right lower back pain. No fever or chills. Upon evaluation patient was afebrile , but tachypneic; pulse oximetry was stable on room air. Laboratory work-up revealed leukocytosis WBC 13.9 , stable hemoglobin , hematocrit and platelet count. Stable electrolytes and renal parameters. Glucose 126. AST 885 , ALT 304 , alkaline phosphatase 68. Lipase 207. EKG revealed sinus rhythm , no acute ischemic changes. Urinalysis revealed no evidence of urinary tract infection. CT scan of the abdomen and pelvis revealed no acute findings. Patchy groun dglass opacity in the lung bases , nonspecific. Cardiomegaly. Hiatal hernia. Ventral abdominal wall air probably correlated with recent surgery. Patient admitted with intractable postopertaive abdominal pain and transaminitis . CONSULTANTS: pulmonary/critical care Dr. Varela GI specialist Dr. Raines bank credit card collection clerk Dr. Farnsworth surgery Dr. Hastings [facility]RSE: Patient admitted and started on the IV hydration . Patient was kept n.p.o. Pain management was addressed. DVT prophylaxis provided. GI specialist follow. LFT were getting progressively worse : AST from initial 885 up to 1401 and ALT from 304 up to 1234. Patient noted to have total CK of above 10,000 on 01/14 and evidence of acute renal failure with BUN of 34 and creatinine of 3.2 on 01/14. Patient undergone abdominal ultrasound , which revealed fatty liver otherwise limited evaluation due to large body habitus. Repeated CT of the abdomen and pelvis revealed patchy density in the left lower lobe, possibly representing pneumonia. Subcutaneous emphysema noted in the anterior upper abdominal wall with mild fat stranding, which may be related to recent surgery. Renal ultrasound revealed no hydronephrosis. Ultrasound of the abdomen revealed echogenic liver , suggestive of fatty infiltration or hepatocellular disease. No hepatic venous thrombus was demonstrated. Hepatitis panel still pending at the time of this dictation. General surgeon closely followed and discussed further plan of care with patient 's primary surgeon, Dr Nolan, who performed laparascopic gastric sleeve. Surgeon requested transfer to [facility] . Again CT scan ,which was repeated ,showed no leak and no thrombus. Patient continued to be n.p.o. on IV fluids . Patient started on heparin drip. Teacher Associate consulted for acute renal failure. Patient was on aggressive IV hydration. Lisinopril and Toradol were both stopped as possible contributor to renal. Urine studies initiated. Ambriz catheter was placed. Mild leukocytosis resolved. Patient remained afebrile. GI prophylaxis provided. Supportive care provided. Blood pressure was closely monitored and managed with current regimen. Bowel regimen instituted. Supportive care provided. Placement was secured at [facility] and patient was subsequnetly transferred via [facility] ambulance. FINAL DIAGNOSES: Acute postoperative abdominal pain Status post recent laparoscopic gastric sleeve surgery Acute renal failure , probably due to rhabdomyolysis Progressive transaminitis Rhabdomyolysis Morbid obesity Mild leukocytosis -resolved Hypertension DISCHARGE MEDICATIONS: See Medication Reconciliation list. DISCHARGE INSTRUCTIONS: Patient was transferred to [facility] for further management as per his surgeon orders. I have been assigned to dictate discharge summary for this account. I was not involved in the patient's management. Brook Bosch NP Jan 17, 2020 11:48
== END 2020-01-15 04:15 | disposition short-term general hospital (02) | DRG 948 ==
LOC: EMR 20:30 → 3E 21:34 → EDBEDREQ 22:24 → ICU 01-14 17:15
DX: G89.18 Other acute postprocedural pain (principal); N17.9 Acute kidney failure, unspecified; M62.82 Rhabdomyolysis; Z68.43 Body mass index [BMI] 50.0-59.9, adult; Z98.84 Bariatric surgery status; R74.0 Nonspecific elevation of levels of transaminase and lactic acid dehydrogenase [LDH]; E66.01 Morbid (severe) obesity due to excess calories; I10 Essential (primary) hypertension; K44.9 Diaphragmatic hernia without obstruction or gangrene; K76.0 Fatty (change of) liver, not elsewhere classified
CPT/HCPCS: 36415; 74176; 74178; 76700; 76770; 80048; 80053; 81003; 82150; 82550; 83690; 83735; 84100; 85025; 85610; 85651; 85730; 86140; 86705; 86709; 86803; 86850; 86900; 86901; 87340; 93975; 96361; 96374; 96375; 96376; 99285; J2405; J7030